=== PATIENT | female | born 1970 | race African-American/Black ===

== ENCOUNTER 2018-03-28 11:58 | Inpatient (IN) | payer OTHER ==
[2018-03-28 13:28] VITALS: BMI 23.6
--- NOTE | 2018-03-28 19:03 | HP ---
Admission ROS [facility] Chief Complaint: WITHDRAWAL SYMPTOMS Allergies/Adverse Reactions: Allergies Allergy/AdvReac Type Severity Reaction Status Date / Time No Known Allergies Allergy Verified 03/28/18 16:17 History of Present Illness: 47 Y.O. WOMAN WITH A HISTORY OF ALCOHOL AND OPIATE DEPENDENCE IS HERE SEEKING HER FIRST ADMISSION TO REHAB. SHE REPORTS SHE WAS ADMITTED TO DETOX AT [facility] ON BUT SHE DID NOT COMPLETE TREATMENT. Exam Limitations: No Limitations - Ebola screening Have you traveled outside of the country in the last 21 days: No Have you had contact with anyone from an Ebola affected area: No Have you been sick,other than usual withdrawal symptoms: No Do you have a fever: No - Review of Systems Constitutional: Loss of Appetite, Changes in sleep EENT: reports: Blurred Vision, Tearing Respiratory: reports: Cough, Shortness of Breath Cardiac: reports: No Symptoms Reported GI: reports: No Symptoms Reported : reports: No Symptoms Reported Musculoskeletal: reports: Back Pain, Neck Pain Integumentary: reports: No Symptoms Reported Neuro: reports: No Symptoms reported Endocrine: reports: No Symptoms Reported Hematology: reports: No Symptoms Reported Psychiatric: reports: Orientated x3 Other Systems: Reviewed and Negative Patient History - Patient Medical History Hx Anemia: No Hx Asthma: Yes (TAKES ALBUTEROL ) Hx Chronic Obstructive Pulmonary Disease (COPD): No Hx Cancer: No Hx Cardiac Disorders: No Hx Congestive Heart Failure: No Hx Hypertension: Yes (ON MEDS ) Hx Hypercholesterolemia: No Hx Pacemaker: No HX Cerebrovascular Accident: No Hx Seizures: No Hx Dementia: No Hx Diabetes: No Hx Gastrointestinal Disorders: No Hx Liver Disease: No Hx Genitourinary Disorders: No Hx Sexually Transmitted Disorders: No Hx Renal Disease (ESRD): No Hx Thyroid Disease: No Hx Human Immunodeficiency Virus (HIV): No Hx Hepatitis C: No Hx Depression: Yes Hx Suicide Attempt: No Hx Bipolar Disorder: No Hx Schizophrenia: No - Patient Surgical History Past Surgical History: No - PPD History Previous Implant?: No PPD to be Administered?: Yes - Reproductive History Patient is a Female of Child Bearing Age (11 -55 yrs old): Yes Last Menstrual Period: 02/25/18 Patient : No - Smoking Cessation Smoking history: Former smoker Have you smoked in the past 12 months: No Initiated information on smoking cessation: No - Substance & Tx. History Hx Alcohol Use: Yes Hx Substance Use: Yes Substance Use Type: Alcohol, Heroin Hx Substance Use Treatment: Yes (DETOX AT [facility] ON 03/23/18) - Substances Abused Heroin Route: Inhalation Frequency: Daily Amount used: 20 BAGS Age of first use: 34 Date of Last Use: 03/28/18 Alcohol Route: Oral Frequency: Daily Amount used: 1 PINT LIQUOR Age of first use: 23 Date of Last Use: 03/26/18 Family Disease History - Family Disease History Family History: Denies Admission Physical Exam [facility] - Vital Signs Vital Signs: Vital Signs - 24 hr 03/28/18 13:17 Temperature 97 F L Pulse Rate 72 Respiratory 20 Rate Blood Pressure 139/110 - Physical General Appearance: Yes: Irritable, Anxious HEENTM: Yes: Hearing grossly Normal, Normal ENT Inspection, Normocephalic Respiratory: Yes: Chest Non-Tender, Lungs Clear, Normal Breath Sounds Neck: Yes: No masses,lesions,Nodules, Trachea in good position Breast: Yes: Breast Exam Deferred Cardiology: Yes: Regular Rhythm, Regular Rate Abdominal: Yes: Normal Bowel Sounds, Non Tender Genitourinary: Yes: Other (NO COMPLAINTS REPORTED) Back: Yes: Normal Inspection Extremities: Yes: Normal Capillary Refill, Normal Inspection, Normal Range of Motion, Non-Tender Neurological: Yes: cytometry technologist II-XII NML intact, Fully Oriented, Alert, Normal Mood/ Affect, Normal Response Integumentary: Yes: Normal Color, Dry, Warm Lymphatic: Yes: Within Normal Limits - Diagnostic (1) Alcohol dependence with uncomplicated withdrawal Current Visit: Yes Status: Chronic (2) Opioid dependence with withdrawal Current Visit: Yes Status: Chronic (3) Asthma Current Visit: Yes Status: Chronic (4) Hypertension Current Visit: Yes Status: Chronic Cleared for Admission [facility] - Detox or Rehab [facility] Level of Care: Observation Bed Detox Regimen/Protocol: Not Applicable Claeared for Rehab Admission: Yes [facility] Breath Alcohol Content Breath Alcohol Content: 0 Urine Drug Screen - Results Drug Screen Negative: No Urine Drug Screen Results: KAYA-Cocaine, OPI-Opiates, BZO-Benzodiazepines, MTD- Methadone Inpatient Rehab Admission - Initial Determination Are CD services needed?: Yes Free of communicable disease: Yes Not in need of hospitalization: Yes - Rehab Admission Criteria Previous failed treatment: Yes Poor recovery environment: Yes Comorbidities: Yes Lacks judgement: Yes Patient is meeting Inpatient Rehab admission criteria:: Yes
[2018-03-28] MEDS ORDERED: LOPERAMIDE HCL 2 MG CAPSULE PO PRN (19:06)
[2018-03-28] MEDS ORDERED: P-EPHED 60MG/TRIPROLIDI 2.5MG TABLET PO PRN (19:06)
[2018-03-28] MEDS ORDERED: MENTHOL/PHENOL 1 EACH UD MM PRN (19:06)
[2018-03-28] MEDS ORDERED: MAGNESIUM CITRATE 300 ML BOTTLE PO PRN (19:06)
[2018-03-28] MEDS ORDERED: MAG HYDROX/AL HYDROX/SIMETH 30 ML UNIT-DOSE CUP PO PRN (19:06)
[2018-03-28] MEDS ORDERED: hydrOXYzine PAMOATE 50 MG CAPSULE (FP) PO PRN (19:06)
[2018-03-28] MEDS ORDERED: MAGNESIUM HYDROX 2400MG/30ML ORAL SUSPENSION 30 ML CUP PO PRN (19:06)
[2018-03-28] MEDS ORDERED: guaiFENesin/D-METHORPHAN HB 10 ML UNIT-DOSE CUPS PO PRN (19:06)
[2018-03-28] MEDS ORDERED: ALBUTEROL SO4 8 GM HFA INHALER IH PRN (19:08)
[2018-03-28] MEDS: THIAMINE HCL 100 MG TABLET (FP) PO SCH (21:54)
[2018-03-28] MEDS: diphenhydrAMINE HCL 25 MG CAPSULE (FP) PO SCH (21:54)
[2018-03-28] MEDS: LISINOPRIL 20 MG TABLET (FP) PO SCH (21:54)
[2018-03-28] MEDS: MELATONIN 5 MG TABLETS PO PRN (21:56)
[2018-03-28] MEDS ORDERED: cloNIDine HCL 0.1 MG TABLET PO SCH (22:00)
[2018-03-28] MEDS: CYCLOBENZAPRINE HCL 5 MG TABLET PO SCH (22:48)
[2018-03-29 02:11] LABS: URINE APPEARANCE SLCLOUDY; URINE BILIRUBIN NEGATIVE (<2.0 mg/dL); URINE COLOR LTYELLOW; URINE GLUCOSE (UA) NEGATIVE (NEGATIVE); URINE KETONE NEGATIVE (NEGATIVE); URINE NITRITE NEGATIVE (NEGATIVE); URINE PROTEIN NEGATIVE (NEGATIVE); URINE UROBILINOGEN NEGATIVE mg/dL (0.2-1.0)
[2018-03-29 02:31] LABS: URINE LEUK ESTERASE 1+ (NEGATIVE)
[2018-03-29 02:36] LABS: EPI CELLS RARE /HPF (FEW); URINE BACTERIA MODERATE /hpf (NONE SEEN)
[2018-03-29] MEDS ORDERED: cloNIDine HCL 0.1 MG TABLET PO SCH ×2 (07:15→22:00)
[2018-03-29] MEDS: CYCLOBENZAPRINE HCL 5 MG TABLET PO SCH ×3 (07:19→22:06)
[2018-03-29] MEDS: PRENATAL VITAMINS W/ FOLIC ACID TABLET (FP) PO SCH (09:34)
[2018-03-29] MEDS: HYDROCHLOROTHIAZIDE 25 MG TABLET (FP) PO SCH (09:34)
[2018-03-29] MEDS: LISINOPRIL 20 MG TABLET (FP) PO SCH ×2 (09:34→22:06)
--- NOTE | 2018-03-29 10:28 | EKG ---
Test Reason : Blood Pressure : / mmHG Vent. Rate : 071 BPM Atrial Rate : 071 BPM P-R Int : 144 ms QRS Dur : 076 ms QT Int : 476 ms P-R-T Axes : 044 014 144 degrees QTc Int : 517 ms NORMAL SINUS RHYTHM T WAVE ABNORMALITY, CONSIDER INFEROLATERAL ISCHEMIA PROLONGED QT ABNORMAL ECG NO PREVIOUS ECGS AVAILABLE Confirmed by SHAHID CARRILLO MD ([id number]) on 03/29/2018 10:28:44 AM Referred By: Confirmed By:SHAHID CARRILLO MD
--- NOTE | 2018-03-29 10:29 | HP ---
Psychiatrist Admission - Data Date of interview: 03/29/18 Admission source: [facility] Identifying data: THis is ther first inpatient rehabilitation for this 47 years old AA single mother of 4 ,undomiciled,supported by SSi. Medical History: Significant for HTN,BA. Psychiatric History: No previous psychiatric history,reports some sleeping difficulties on and off. Physical/Sexual Abuse/Trauma History: denies Vital Signs: Vital Signs - 24 hr 03/28/18 03/28/18 03/29/18 13:17 22:51 00:30 Temperature 97 F L Pulse Rate 72 96 H Respiratory 20 16 Rate Blood Pressure 139/110 150/100 03/29/18 03/29/18 03/29/18 03:30 06:41 07:10 Temperature 97.7 F Pulse Rate 68 68 Respiratory 16 18 Rate Blood Pressure 151/124 160/118 03/29/18 09:21 Temperature Pulse Rate 69 Respiratory Rate Blood Pressure 186/128 Allergies/Adverse Reactions: Allergies Allergy/AdvReac Type Severity Reaction Status Date / Time No Known Allergies Allergy Verified 04/02/18 13:47 Date of last physical exam: 03/28/18 Concur with the findings of this exam: Yes - Substance Abuse/Tx History Hx Alcohol Use: Yes (reports drinking since 23 yo,1 pint of hard liquor daily) Hx Substance Use: Yes (heroin since 34 yo,20 bags daily sniffing) Substance Use Type: Alcohol, Heroin Hx Substance Use Treatment: Yes (no significant abstinent time) Mental Status Exam - Mental Status Exam Alert and Oriented to: Time, Place, Person Cognitive Function: Grossly Intact Patient Appearance: Well Groomed Mood: Sad Affect: Mood Congruent Patient Behavior: Cooperative Voice Loudness: Normal Thought Process: Goal Oriented Thought Disorder: Not Present Hallucinations: Denies Suicidal Ideation: Denies Homicidal Ideation: Denies Insight/Judgement: Fair Sleep: Fair Appetite: Good Muscle strength/Tone: Normal Gait/Station: Normal Psychiatric Findings - Problem List ([place] 1, 2,3) (1) Asthma Current Visit: Yes Status: Chronic (2) Hypertension Current Visit: Yes Status: Chronic Qualifiers: Hypertension type: essential hypertension Qualified Code(s): I10 - Essential (primary) hypertension (3) Opioid dependence with withdrawal Current Visit: Yes Status: Chronic (4) Alcohol dependence Current Visit: Yes Status: Chronic (5) HTN (hypertension) Current Visit: No Status: Chronic Qualifiers: Hypertension type: unspecified Qualified Code(s): I10 - Essential (primary ) hypertension (6) Bronchial asthma Current Visit: Yes Status: Chronic - Initial Treatment Plan Initial Treatment Plan: Will monitor progress.
[2018-03-29 10:58] LABS: HEMATOCRIT 35.7 % (32.4-45.2); HEMOGLOBIN 11.1 GM/dL (10.7-15.3); MCH 24.5 pg (25.7-33.7); MCHC 31.1 g/dl (32.0-36.0); MEAN CELL VOLUME 78.9 fl (80-96); MEAN PLT VOLUME 9.2 fl (7.5-11.1); PLATELET COUNT 211 K/MM3 (134-434); RBC 4.52 M/mm3 (3.60-5.2); RDW 17.6 % (11.6-15.6); WHITE BLOOD COUNT 5.4 K/mm3 (4.0-10.0)
[2018-03-29 11:05] LABS: ALBUMIN 2.9 g/dl (3.4-5.0); ANION GAP 5 MMOL/L (8-16); BLOOD UREA NITROGEN 27 mg/dL (7-18); CALCIUM 9.2 mg/dL (8.5-10.1); CHLORIDE 104 mmol/L (98-107); CO2 34 mmol/L (21-32); GLUCOSE,RANDOM 82 mg/dL (74-106); POTASSIUM 3.7 mmol/L (3.5-5.1); SGOT/AST 68 U/L (15-37); SGPT/ALT 76 U/L (12-78); SODIUM 143 mmol/L (136-145)
[2018-03-29 11:07] LABS: ALK PHOS 56 U/L (45-117); BILIRUBIN,TOTAL 0.2 mg/dL (0.2-1.0); TOT PROT 6.5 g/dl (6.4-8.2)
[2018-03-29] MEDS ORDERED: cloNIDine HCL 0.1 MG TABLET PO ONE ×2 (17:15→23:19)
[2018-03-29] MEDS ORDERED: BUPRENORPHINE/NALOXONE 2 MG/0.5 MG FILM PACKET SL ONE ×2 (20:15→23:20)
[2018-03-29] MEDS: THIAMINE HCL 100 MG TABLET (FP) PO SCH (22:06)
[2018-03-29] MEDS: traZODone HCL 50 MG TABLET (FP) PO SCH (22:06)
[2018-03-29] MEDS: diphenhydrAMINE HCL 25 MG CAPSULE (FP) PO SCH (22:06)
--- NOTE | 2018-03-29 23:30 | PN ---
S Progress Note (SOAP) Subjective: Patient states wants to start on Suboxone and continue post discharge. States does have some opiate withdrawal symptoms. Denies headache, chest pain, SOB. Objective: Alert and oriented. Pupils at 5 mm. 03/29/18 23:28
--- NOTE | 2018-03-29 23:37 | PN ---
BHS COWS - Scale Resting Pulse: 0= VT 80 or Below Sweatin= No chills or Flushing Restless Observation: 1= Difficult to Sit Still Pupil Size: 2= Moderately Dilated (5 mm) Bone or Joint Aches: 1= Mild Discomfort Runny Nose/ Eye Tearin= Runny Nose/Eyes GI Upset > 30mins: 2= Nausea/Diarrhea (No diarrhea) Tremor Observation of Outstretched Hands: 0= None Yawning Observation: 0= None Anxiety or Irritability: 2=Irritable/Anxious Goose Flesh Skin: 0=Smooth Skin COWS Score: 10 BHS Progress Note (SOAP) Subjective: Patient states wants to start on Suboxone and continue post discharge. States does have some opiate withdrawal symptoms. Denies headache, chest pain, SOB. Objective: Alert and oriented. No opiate use for over 24 hours. Blood pressure consistently high despite medications. Vital Signs - 24 hr 03/29/18 03/29/18 03/29/18 00:30 03:30 06:41 Temperature Pulse Rate 68 Respiratory 16 16 Rate Blood Pressure 151/124 03/29/18 03/29/18 03/29/18 07:10 09:21 10:45 Temperature 97.7 F Pulse Rate 68 69 63 Respiratory 18 Rate Blood Pressure 160/118 186/128 161/109 03/29/18 22:00 Temperature Pulse Rate 71 Respiratory Rate Blood Pressure 168/129 CBC, BMP 03/29/18 07:13 03/29/18 07:13 Labs reviewed. Started on Suboxone 2 mg SL earlier and tolerated w/o precipitated withdrawal. Assessment: Opiate use disorder. Uncontrolled hypertension Plan: Give Suboxone 4 mg SL tonight. Suboxone 4 mg SL BID beginning in am. Will adjust cloNIdine doses. If B/P does not decrease after 2330 dose will send to ER.
[2018-03-30] MEDS ORDERED: LISINOPRIL 20 MG TABLET (FP) PO ONE (00:48)
--- NOTE | 2018-03-30 00:59 | PN ---
S Progress Note Note: Patient's B/P: 193/126. Consultation w/ ER physician, Dr. Benjamin, who suggested give a stat dose of Lisinopril 40 mg PO. Will d/c cloNIdine and evalute in am.
[2018-03-30] MEDS: CYCLOBENZAPRINE HCL 5 MG TABLET PO SCH ×3 (06:24→21:25)
[2018-03-30] MEDS: LISINOPRIL 20 MG TABLET (FP) PO SCH ×2 (09:22→21:25)
[2018-03-30] MEDS: PRENATAL VITAMINS W/ FOLIC ACID TABLET (FP) PO SCH (09:22)
[2018-03-30] MEDS: HYDROCHLOROTHIAZIDE 25 MG TABLET (FP) PO SCH (09:22)
[2018-03-30] MEDS: BUPRENORPHINE/NALOXONE 2 MG/0.5 MG FILM PACKET SL SCH ×2 (09:23→21:25)
[2018-03-30] MEDS: diphenhydrAMINE HCL 25 MG CAPSULE (FP) PO SCH (21:25)
[2018-03-30] MEDS: traZODone HCL 50 MG TABLET (FP) PO SCH (21:25)
[2018-03-30] MEDS: THIAMINE HCL 100 MG TABLET (FP) PO SCH (21:25)
[2018-03-31] MEDS: CYCLOBENZAPRINE HCL 5 MG TABLET PO SCH ×3 (06:49→21:35)
[2018-03-31] MEDS ORDERED: amLODIPine BESYLATE 5 MG TABLET (FP) PO ONE (06:54)
--- NOTE | 2018-03-31 07:41 | PN ---
[facility] Progress Note Note: SEEN FOR ONGOING ELEVATED B/P. CLIENT REPORTS HX/O BUT WAS NOT TAKING HOME MEDICATION BYSTOLIC 10MG, CLONIDINE AND LISINOPRIL FOR A LONG TIME SHE WAS OUT OF HER MEDICATION. SHE ALSO REPORTS CHRONIC BACK PAIN 05/08 AND THAT IT ALSO MAY BE A CONTRIBUTING FACTOR TO THE ELEVATED BP. SHE PRESENTLY DENIES SOB, C.P. VISUAL DISTURBANCES, DIZZINESS. AWAKE/ ALERT NAD CV RRR LUNGS CTAB Vital Signs (72 hours) 03/28/18 03/28/18 03/29/18 13:17 22:51 00:30 Temperature 97 F L Pulse Rate 72 96 H Respiratory 20 16 Rate Blood Pressure 139/110 150/100 03/29/18 03/29/18 03/29/18 03:30 06:41 07:10 Temperature 97.7 F Pulse Rate 68 68 Respiratory 16 18 Rate Blood Pressure 151/124 160/118 03/29/18 03/29/18 03/29/18 09:21 10:45 17:15 Temperature Pulse Rate 69 63 70 Respiratory 18 Rate Blood Pressure 186/128 161/109 196/123 03/29/18 03/29/18 03/29/18 22:00 23:00 23:45 Temperature Pulse Rate 71 71 65 Respiratory 18 18 Rate Blood Pressure 168/129 190/128 193/126 03/30/18 03/30/18 03/30/18 00:30 00:54 02:25 Temperature 98.0 F Pulse Rate 60 54 L Respiratory 18 18 18 Rate Blood Pressure 170/118 183/110 03/30/18 03/30/18 03/30/18 03:30 07:03 09:31 Temperature 98 F Pulse Rate 74 67 Respiratory 17 18 Rate Blood Pressure 131/92 127/80 03/30/18 03/30/18 03/31/18 21:00 23:06 00:30 Temperature Pulse Rate 64 54 L Respiratory 17 Rate Blood Pressure 206/141 188/112 03/31/18 03/31/18 03/31/18 00:40 03:30 07:09 Temperature 97.9 F Pulse Rate 51 L 66 Respiratory 18 18 18 Rate Blood Pressure 169/113 154/120 MANUAL REPEAT LEFT ARM SITTING- 138/110 RIGHT ARM 190/110- A-HTN P- AMLODIPINE 5 MG NOW WILL CONSIDER ER TRANSFER IF B/P DOES NOT RESPOND CONT TO MONITOR CLINICALLY VS Q SHIFT
[2018-03-31] MEDS: LISINOPRIL 20 MG TABLET (FP) PO SCH ×2 (09:12→21:35)
[2018-03-31] MEDS: HYDROCHLOROTHIAZIDE 25 MG TABLET (FP) PO SCH (09:12)
[2018-03-31] MEDS: PRENATAL VITAMINS W/ FOLIC ACID TABLET (FP) PO SCH (09:12)
[2018-03-31] MEDS: LIDOCAINE 5% TOPICAL PATCH TP SCH (09:13)
[2018-03-31] MEDS: BUPRENORPHINE/NALOXONE 2 MG/0.5 MG FILM PACKET SL SCH ×2 (09:13→21:35)
--- NOTE | 2018-03-31 17:46 | PN ---
S Progress Note (SOAP) Subjective: c/o tooth ache. Denies headache, vertigo, weakness, chest pain, SOB. has been feeling comfortable since starting Suboxone. attended a group today. Objective: Alert and oriented x 3. Soft, 1.5 cm, tender, pinkish-yellowish mass (R) upper outer gum line at molar area. Many teeth are broken w/ (+) caries. Vital Signs - 24 hr 03/30/18 03/30/18 03/31/18 21:00 23:06 00:30 Temperature Pulse Rate 64 54 L Respiratory 17 Rate Blood Pressure 206/141 188/112 03/31/18 03/31/18 03/31/18 00:40 03:30 07:09 Temperature 97.9 F Pulse Rate 51 L 66 Respiratory 18 18 18 Rate Blood Pressure 169/113 154/120 03/31/18 03/31/18 03/31/18 09:00 10:58 14:00 Temperature 97.8 F Pulse Rate 70 73 68 Respiratory 18 Rate Blood Pressure 140/110 160/110 145/111 03/31/18 15:15 Temperature 98.1 F Pulse Rate 69 Respiratory 18 Rate Blood Pressure 157/111 Assessment: Uncontrolled Hypertension . Tooth/Gum abscess Opiate use disorder Alcoholism in early remission Plan: Start Metoprolol 50 mg PO Daily and continue to monitor B/P Start amoxicillin 500 mg PO TID x 10 days. Continue rehab protocol
[2018-03-31] MEDS: AMOXICILLIN 500 MG CAPSULE (FP) PO SCH (21:35)
[2018-03-31] MEDS: THIAMINE HCL 100 MG TABLET (FP) PO SCH (21:35)
[2018-03-31] MEDS: diphenhydrAMINE HCL 25 MG CAPSULE (FP) PO SCH (21:35)
[2018-03-31] MEDS: LIDOCAINE PATCH REMOVAL MC SCH (21:37)
[2018-03-31] MEDS: traZODone HCL 50 MG TABLET (FP) PO SCH (21:38)
[2018-04-01] MEDS: CYCLOBENZAPRINE HCL 5 MG TABLET PO SCH ×3 (06:26→21:23)
[2018-04-01] MEDS: AMOXICILLIN 500 MG CAPSULE (FP) PO SCH ×3 (06:26→21:26)
--- NOTE | 2018-04-01 07:57 | PN ---
[facility] Progress Note Note: CONSULTED WITH DR. ANTONIO HOSPITALIST AT [facility] [place] HYDRALAZINE [address] ANTONIO AND/SERVICE MAY BE REACHED AT [phone] AND THEN FIRTS 3 LETTERS OF LAST NAME WHEN PROMPTED FOR FURTHER CONSULT IF NEEDED Laboratory Tests 03/29/18 03/29/18 03/29/18 00:45 07:13 07:13 WBC 5.4 RBC 4.52 Hgb 11.1 Hct 35.7 MCV 78.9 L MCH 24.5 L MCHC 31.1 L RDW 17.6 H Plt Count 211 MPV 9.2 Sodium 143 Potassium 3.7 Chloride 104 Carbon Dioxide 34 H Anion Gap 5 L BUN 27 H Creatinine 2.0 H Creat Clearance w eGFR 26.59 Random Glucose 82 Calcium 9.2 Total Bilirubin 0.2 AST 68 H ALT 76 Alkaline Phosphatase 56 Total Protein 6.5 Albumin 2.9 L Urine Color Ltyellow Urine Appearance Slcloudy Urine pH 6.0 Ur Specific [place] 1.004 Urine Protein Negative Urine Glucose (UA) Negative Urine Ketones Negative Urine Blood Negative Urine Nitrite Negative Urine Bilirubin Negative Urine Urobilinogen Negative Ur Leukocyte Esterase 1+ H Urine WBC (Auto) 4 Urine RBC (Auto) 1 Ur Epithelial Cells Rare Urine Bacteria Moderate RPR Titer 03/29/18 07:13 WBC RBC Hgb Hct MCV MCH MCHC RDW Plt Count MPV Sodium Potassium Chloride Carbon Dioxide Anion Gap BUN Creatinine Creat Clearance w eGFR Random Glucose Calcium Total Bilirubin AST ALT Alkaline Phosphatase Total Protein Albumin Urine Color Urine Appearance Urine pH Ur Specific [place] Urine Protein Urine Glucose (UA) Urine Ketones Urine Blood Urine Nitrite Urine Bilirubin Urine Urobilinogen Ur Leukocyte Esterase Urine WBC (Auto) Urine RBC (Auto) Ur Epithelial Cells Urine Bacteria RPR Titer Nonreactive Vital Signs - 24 hr 03/31/18 03/31/18 03/31/18 09:00 10:58 14:00 Temperature 97.8 F Pulse Rate 70 73 68 Respiratory 18 Rate Blood Pressure 140/110 160/110 145/111 03/31/18 03/31/18 03/31/18 15:15 20:45 23:51 Temperature 98.1 F Pulse Rate 69 72 58 L Respiratory 18 Rate Blood Pressure 157/111 170/126 153/98 04/01/18 04/01/18 04/01/18 00:30 03:30 06:45 Temperature 97.8 F Pulse Rate 54 L Respiratory 18 18 16 Rate Blood Pressure 176/127 18 04/01/18 07:06 07:41 Temperature Pulse Rate 58 L 56 L Respiratory 16 16 Rate Blood Pressure 165/110 159/104
[2018-04-01] MEDS: hydrALAZINE HCL 25 MG TABLET (FP) PO SCH ×3 (08:23→21:23)
[2018-04-01] MEDS: HYDROCHLOROTHIAZIDE 25 MG TABLET (FP) PO SCH (09:06)
[2018-04-01] MEDS: LISINOPRIL 20 MG TABLET (FP) PO SCH ×2 (09:09→21:23)
[2018-04-01] MEDS: PRENATAL VITAMINS W/ FOLIC ACID TABLET (FP) PO SCH (09:09)
[2018-04-01] MEDS: BUPRENORPHINE/NALOXONE 2 MG/0.5 MG FILM PACKET SL SCH ×2 (09:09→21:22)
[2018-04-01] MEDS: LIDOCAINE 5% TOPICAL PATCH TP SCH (09:15)
[2018-04-01] MEDS: THIAMINE HCL 100 MG TABLET (FP) PO SCH (21:22)
[2018-04-01] MEDS: traZODone HCL 50 MG TABLET (FP) PO SCH (21:23)
[2018-04-01] MEDS: diphenhydrAMINE HCL 25 MG CAPSULE (FP) PO SCH (21:23)
[2018-04-01] MEDS ORDERED: PT OWN MED DRAWER 7, Y5N ONE (21:24)
[2018-04-01] MEDS: LIDOCAINE PATCH REMOVAL MC SCH (21:26)
[2018-04-02] MEDS ORDERED: PT OWN MED DRAWER 7, Y5N ONE ×3 (03:36→21:22)
[2018-04-02] MEDS: hydrALAZINE HCL 25 MG TABLET (FP) PO SCH ×3 (06:37→21:22)
[2018-04-02] MEDS: AMOXICILLIN 500 MG CAPSULE (FP) PO SCH ×3 (06:37→21:23)
[2018-04-02] MEDS: CYCLOBENZAPRINE HCL 5 MG TABLET PO SCH ×3 (06:37→21:23)
[2018-04-02] MEDS: hydrOXYzine PAMOATE 50 MG CAPSULE (FP) PO PRN ×2 (09:11→20:06)
[2018-04-02] MEDS: PRENATAL VITAMINS W/ FOLIC ACID TABLET (FP) PO SCH (09:14)
[2018-04-02] MEDS: LIDOCAINE 5% TOPICAL PATCH TP SCH (09:14)
[2018-04-02] MEDS: BUPRENORPHINE/NALOXONE 2 MG/0.5 MG FILM PACKET SL SCH ×2 (09:14→21:23)
[2018-04-02] MEDS: LISINOPRIL 20 MG TABLET (FP) PO SCH ×2 (09:15→21:23)
[2018-04-02] MEDS: HYDROCHLOROTHIAZIDE 25 MG TABLET (FP) PO SCH (09:15)
--- NOTE | 2018-04-02 12:35 | PN ---
Teaching Attending Note Name of Resident: Avery Pool (MedStud) ATTENDING PHYSICIAN STATEMENT I saw and evaluated the patient. I reviewed the resident's note and discussed the case with the resident. I agree with the resident's findings and plan as documented. SUBJECTIVE: Patient has long standing uncontrolled HTN, was prescribed meds (Lisinopril, Bystolic, Hydralazine) by a PCP Dr. Edmond (sp?) in [place]. Has not been taking her medications for quite some time. Denies any h/o TX, CP, SOB, or other symptoms of hypertensive urgency. She denies any relationship between cocaine use and her cardiac history. On Suboxone for OUD, 4mg. She denies headache, N/V, SOB, CP, dizziness or change in vision. "Some blurry vision, but I usually wear glasses". OBJECTIVE: AOx3. Conversant. Vital Signs (72 hours) 03/30/18 03/30/18 03/31/18 21:00 23:06 00:30 Temperature Pulse Rate 64 54 L Respiratory 17 Rate Blood Pressure 206/141 188/112 03/31/18 03/31/18 03/31/18 00:40 03:30 07:09 Temperature 97.9 F Pulse Rate 51 L 66 Respiratory 18 18 18 Rate Blood Pressure 169/113 154/120 03/31/18 03/31/18 03/31/18 09:00 10:58 14:00 Temperature 97.8 F Pulse Rate 70 73 68 Respiratory 18 Rate Blood Pressure 140/110 160/110 145/111 03/31/18 03/31/18 03/31/18 15:15 20:45 23:51 Temperature 98.1 F Pulse Rate 69 72 58 L Respiratory 18 Rate Blood Pressure 157/111 170/126 153/98 04/01/18 04/01/18 04/01/18 00:30 03:30 06:45 Temperature 97.8 F Pulse Rate 54 L Respiratory 18 18 16 Rate Blood Pressure 176/127 04/01/18 04/01/18 04/01/18 07:06 07:41 09:20 Temperature Pulse Rate 58 L 56 L 61 Respiratory 16 16 Rate Blood Pressure 165/110 159/104 189/132 04/01/18 04/01/18 04/01/18 13:34 22:20 23:56 Temperature Pulse Rate 68 64 64 Respiratory 18 Rate Blood Pressure 157/104 213/122 178/115 04/01/18 04/02/18 04/02/18 23:57 00:30 03:30 Temperature Pulse Rate Respiratory 18 18 Rate Blood Pressure 178/115 04/02/18 04/02/18 04/02/18 07:00 09:16 11:33 Temperature 97.7 F Pulse Rate 66 76 76 Respiratory 16 18 Rate Blood Pressure 163/123 191/118 153/97 ASSESSMENT AND PLAN: Agree with Medical Student Note. Hypertensive Urgency despite being on medications. Transfer to [facility] ED for full evaluation and treatment if necessary.
[2018-04-02] MEDS ORDERED: cloNIDine HCL 0.1 MG TABLET PO ONE (19:33)
--- NOTE | 2018-04-02 19:35 | PN ---
S Progress Note Note: Notified by RN patient returned from [facility] ER with BP 205/145. Patient not reported as symptomatic. Will give clonidine 0.2mg po stat and endorse return from ER to [facility]. Continue to monitor clinically.
[2018-04-02] MEDS: THIAMINE HCL 100 MG TABLET (FP) PO SCH (21:23)
[2018-04-02] MEDS: LIDOCAINE PATCH REMOVAL MC SCH (21:23)
[2018-04-02] MEDS: diphenhydrAMINE HCL 25 MG CAPSULE (FP) PO SCH (21:23)
[2018-04-02] MEDS: traZODone HCL 50 MG TABLET (FP) PO SCH (21:23)
[2018-04-03] MEDS: hydrALAZINE HCL 25 MG TABLET (FP) PO SCH ×3 (06:31→21:11)
[2018-04-03] MEDS: CYCLOBENZAPRINE HCL 5 MG TABLET PO SCH ×3 (06:31→21:10)
[2018-04-03] MEDS: AMOXICILLIN 500 MG CAPSULE (FP) PO SCH ×3 (06:31→21:10)
[2018-04-03] MEDS: HYDROCHLOROTHIAZIDE 25 MG TABLET (FP) PO SCH (09:05)
[2018-04-03] MEDS: LISINOPRIL 20 MG TABLET (FP) PO SCH ×2 (09:05→21:10)
[2018-04-03] MEDS: PRENATAL VITAMINS W/ FOLIC ACID TABLET (FP) PO SCH (09:06)
[2018-04-03] MEDS: LIDOCAINE 5% TOPICAL PATCH TP SCH (09:06)
[2018-04-03] MEDS: BUPRENORPHINE/NALOXONE 2 MG/0.5 MG FILM PACKET SL SCH ×2 (09:06→21:10)
[2018-04-03] MEDS ORDERED: PT OWN MED DRAWER 7, Y5N ONE (12:08)
[2018-04-03] MEDS ORDERED: BENZOCAINE 20 % GEL TUBE MM PRN (14:30)
--- NOTE | 2018-04-03 14:33 | PN ---
S Progress Note Note: Vital Signs Temperature 97.8 F 04/03/18 06:00 Pulse Rate 73 04/03/18 13:44 Respiratory Rate 18 04/03/18 06:00 Blood Pressure 143/90 04/03/18 13:44 O2 Sat by Pulse Oximetry (%) c/o of dental pain on amoxicillin. start anbesol prn ibuprofen prn for pain continue to monitor
[2018-04-03] MEDS: traZODone HCL 50 MG TABLET (FP) PO SCH (21:10)
[2018-04-03] MEDS: diphenhydrAMINE HCL 25 MG CAPSULE (FP) PO SCH (21:10)
[2018-04-03] MEDS: THIAMINE HCL 100 MG TABLET (FP) PO SCH (21:10)
[2018-04-03] MEDS: LIDOCAINE PATCH REMOVAL MC SCH (21:11)
[2018-04-04] MEDS ORDERED: PT OWN MED DRAWER 7, Y5N ONE ×2 (03:23→13:51)
[2018-04-04] MEDS: CYCLOBENZAPRINE HCL 5 MG TABLET PO SCH ×3 (06:15→21:37)
[2018-04-04] MEDS: hydrALAZINE HCL 25 MG TABLET (FP) PO SCH ×3 (06:15→21:38)
[2018-04-04] MEDS: AMOXICILLIN 500 MG CAPSULE (FP) PO SCH ×3 (06:15→21:37)
--- NOTE | 2018-04-04 07:45 | PN ---
[facility] Progress Note Note: client restarted on clonidine home dose 0.2mg bid metoprolol dose dc'ed due to interaction with clonidine no relief noted on the metoprolol cont to monitor clinically
[2018-04-04] MEDS ORDERED: cloNIDine HCL 0.1 MG TABLET PO ONE (08:10)
[2018-04-04] MEDS: HYDROCHLOROTHIAZIDE 25 MG TABLET (FP) PO SCH (10:23)
[2018-04-04] MEDS: LIDOCAINE 5% TOPICAL PATCH TP SCH (10:23)
[2018-04-04] MEDS: LISINOPRIL 20 MG TABLET (FP) PO SCH ×2 (10:23→21:37)
[2018-04-04] MEDS: BUPRENORPHINE/NALOXONE 2 MG/0.5 MG FILM PACKET SL SCH ×2 (10:23→21:37)
[2018-04-04] MEDS: PRENATAL VITAMINS W/ FOLIC ACID TABLET (FP) PO SCH (10:23)
[2018-04-04] MEDS: hydrOXYzine PAMOATE 50 MG CAPSULE (FP) PO PRN (14:12)
[2018-04-04] MEDS ORDERED: PATIENT'S OWN MEDICATION (NON-FORMULARY) (Clonidine Hcl [Catapres] 0.2 MG) PO SCH (18:00)
[2018-04-04] MEDS: cloNIDine HCL 0.1 MG TABLET PO SCH (18:49)
[2018-04-04] MEDS: traZODone HCL 50 MG TABLET (FP) PO SCH (21:37)
[2018-04-04] MEDS: diphenhydrAMINE HCL 25 MG CAPSULE (FP) PO SCH (21:37)
[2018-04-04] MEDS: THIAMINE HCL 100 MG TABLET (FP) PO SCH (21:38)
[2018-04-04] MEDS: LIDOCAINE PATCH REMOVAL MC SCH (21:39)
[2018-04-05] MEDS ORDERED: PT OWN MED DRAWER 7, Y5N ONE ×2 (06:08→15:40)
[2018-04-05] MEDS: CYCLOBENZAPRINE HCL 5 MG TABLET PO SCH ×3 (06:36→21:20)
[2018-04-05] MEDS: cloNIDine HCL 0.1 MG TABLET PO SCH ×3 (06:36→19:13)
[2018-04-05] MEDS: AMOXICILLIN 500 MG CAPSULE (FP) PO SCH ×3 (06:36→21:20)
[2018-04-05] MEDS: hydrALAZINE HCL 25 MG TABLET (FP) PO SCH (06:37)
[2018-04-05] MEDS: BUPRENORPHINE/NALOXONE 2 MG/0.5 MG FILM PACKET SL SCH ×2 (10:48→21:21)
[2018-04-05] MEDS: LISINOPRIL 20 MG TABLET (FP) PO SCH ×2 (10:48→21:20)
[2018-04-05] MEDS: LIDOCAINE 5% TOPICAL PATCH TP SCH (10:48)
[2018-04-05] MEDS: HYDROCHLOROTHIAZIDE 25 MG TABLET (FP) PO SCH (10:48)
[2018-04-05] MEDS: PRENATAL VITAMINS W/ FOLIC ACID TABLET (FP) PO SCH (10:49)
[2018-04-05] MEDS: hydrALAZINE HCL 50 MG TABLET (FP) PO SCH ×2 (14:26→21:22)
[2018-04-05] MEDS: traZODone HCL 50 MG TABLET (FP) PO SCH (21:20)
[2018-04-05] MEDS: diphenhydrAMINE HCL 25 MG CAPSULE (FP) PO SCH (21:20)
[2018-04-05] MEDS: THIAMINE HCL 100 MG TABLET (FP) PO SCH (21:20)
[2018-04-05] MEDS: MELATONIN 5 MG TABLETS PO PRN (21:21)
[2018-04-05] MEDS: LIDOCAINE PATCH REMOVAL MC SCH (21:22)
[2018-04-06] MEDS: hydrALAZINE HCL 50 MG TABLET (FP) PO SCH ×3 (06:53→21:26)
[2018-04-06] MEDS: CYCLOBENZAPRINE HCL 5 MG TABLET PO SCH ×3 (06:53→21:25)
[2018-04-06] MEDS: cloNIDine HCL 0.1 MG TABLET PO SCH ×2 (06:53→17:54)
[2018-04-06] MEDS: AMOXICILLIN 500 MG CAPSULE (FP) PO SCH ×3 (06:53→21:24)
[2018-04-06] MEDS: LISINOPRIL 20 MG TABLET (FP) PO SCH ×2 (10:34→21:25)
[2018-04-06] MEDS: PRENATAL VITAMINS W/ FOLIC ACID TABLET (FP) PO SCH (10:34)
[2018-04-06] MEDS: LIDOCAINE 5% TOPICAL PATCH TP SCH (10:34)
[2018-04-06] MEDS: HYDROCHLOROTHIAZIDE 25 MG TABLET (FP) PO SCH (10:34)
[2018-04-06] MEDS: BUPRENORPHINE/NALOXONE 2 MG/0.5 MG FILM PACKET SL SCH ×2 (10:36→21:26)
--- NOTE | 2018-04-06 13:03 | PN ---
[facility] Progress Note Note: Laboratory Last Values WBC 5.4 K/mm3 (4.0-10.0) 03/29/18 07:13 RBC 4.52 M/mm3 (3.60-5.2) 03/29/18 07:13 Hgb 11.1 GM/dL (10.7-15.3) 03/29/18 07:13 Hct 35.7 % (32.4-45.2) 03/29/18 07:13 MCV 78.9 fl (80-96) L 03/29/18 07:13 MCH 24.5 pg (25.7-33.7) L 03/29/18 07:13 MCHC 31.1 g/dl (32.0-36.0) L 03/29/18 07:13 RDW 17.6 % (11.6-15.6) H 03/29/18 07:13 Plt Count 211 K/MM3 (134-434) 03/29/18 07:13 MPV 9.2 fl (7.5-11.1) 03/29/18 07:13 Sodium 143 mmol/L (136-145) 03/29/18 07:13 Potassium 3.7 mmol/L (3.5-5.1) 03/29/18 07:13 Chloride 104 mmol/L (98-107) 03/29/18 07:13 Carbon Dioxide 34 mmol/L (21-32) H 03/29/18 07:13 Anion Gap 5 MMOL/L (8-16) L 03/29/18 07:13 BUN 27 mg/dL (7-18) H 03/29/18 07:13 Creatinine 2.0 mg/dL (0.55-1.02) H 03/29/18 07:13 Creat Clearance w eGFR 26.59 (>60) 03/29/18 07:13 Random Glucose 82 mg/dL (74-106) 03/29/18 07:13 Calcium 9.2 mg/dL (8.5-10.1) 03/29/18 07:13 Total Bilirubin 0.2 mg/dL (0.2-1.0) 03/29/18 07:13 AST 68 U/L (15-37) H 03/29/18 07:13 ALT 76 U/L (12-78) 03/29/18 07:13 Alkaline Phosphatase 56 U/L (45-117) 03/29/18 07:13 Total Protein 6.5 g/dl (6.4-8.2) 03/29/18 07:13 Albumin 2.9 g/dl (3.4-5.0) L 03/29/18 07:13 Urine Color Ltyellow 03/29/18 00:45 Urine Appearance Slcloudy 03/29/18 00:45 Urine pH 6.0 (5.0-8.0) 03/29/18 00:45 Ur Specific [place] 1.004 (1.001-1.035) 03/29/18 00:45 Urine Protein Negative (NEGATIVE) 03/29/18 00:45 Urine Glucose (UA) Negative (NEGATIVE) 03/29/18 00:45 Urine Ketones Negative (NEGATIVE) 03/29/18 00:45 Urine Blood Negative (NEGATIVE) 03/29/18 00:45 Urine Nitrite Negative (NEGATIVE) 03/29/18 00:45 Urine Bilirubin Negative (<2.0 mg/dL) 03/29/18 00:45 Urine Urobilinogen Negative mg/dL (0.2-1.0) 03/29/18 00:45 Ur Leukocyte Esterase 1+ (NEGATIVE) H 03/29/18 00:45 Urine WBC (Auto) 4 /hpf (3-5) 03/29/18 00:45 Urine RBC (Auto) 1 /hpf (0-3) 03/29/18 00:45 Ur Epithelial Cells Rare /HPF (FEW) 03/29/18 00:45 Urine Bacteria Moderate /hpf (NONE SEEN) 03/29/18 00:45 RPR Titer Nonreactive (NONREACTIVE) 03/29/18 07:13 repeat cmp continue to monitor
[2018-04-06] MEDS ORDERED: PT OWN MED DRAWER 7, Y5N ONE (13:49)
[2018-04-06] MEDS: hydrOXYzine PAMOATE 50 MG CAPSULE (FP) PO PRN (17:55)
[2018-04-06] MEDS: diphenhydrAMINE HCL 25 MG CAPSULE (FP) PO SCH (21:25)
[2018-04-06] MEDS: traZODone HCL 50 MG TABLET (FP) PO SCH (21:25)
[2018-04-06] MEDS: THIAMINE HCL 100 MG TABLET (FP) PO SCH (21:25)
[2018-04-06] MEDS: LIDOCAINE PATCH REMOVAL MC SCH (21:26)
[2018-04-07] MEDS: cloNIDine HCL 0.1 MG TABLET PO SCH ×2 (06:58→18:45)
[2018-04-07] MEDS: hydrALAZINE HCL 50 MG TABLET (FP) PO SCH ×3 (06:58→21:08)
[2018-04-07] MEDS: AMOXICILLIN 500 MG CAPSULE (FP) PO SCH ×2 (06:58→14:30)
[2018-04-07] MEDS: CYCLOBENZAPRINE HCL 5 MG TABLET PO SCH ×3 (06:58→21:06)
[2018-04-07] MEDS: LIDOCAINE 5% TOPICAL PATCH TP SCH (09:21)
[2018-04-07] MEDS: HYDROCHLOROTHIAZIDE 25 MG TABLET (FP) PO SCH (09:21)
[2018-04-07] MEDS: PRENATAL VITAMINS W/ FOLIC ACID TABLET (FP) PO SCH (09:21)
[2018-04-07] MEDS: LISINOPRIL 20 MG TABLET (FP) PO SCH ×2 (09:21→21:07)
[2018-04-07] MEDS: BUPRENORPHINE/NALOXONE 2 MG/0.5 MG FILM PACKET SL SCH ×2 (09:22→21:08)
[2018-04-07] MEDS: ACETAMINOPHEN 325 MG TABLET (FP) PO PRN (10:56)
[2018-04-07 11:51] LABS: ALBUMIN 3.8 g/dl (3.4-5.0); ALK PHOS 71 U/L (45-117); ANION GAP 7 MMOL/L (8-16); BILIRUBIN,TOTAL 0.3 mg/dL (0.2-1.0); BLOOD UREA NITROGEN 36 mg/dL (7-18); CALCIUM 9.6 mg/dL (8.5-10.1); CHLORIDE 96 mmol/L (98-107); CO2 34 mmol/L (21-32); CREATININE 1.7 mg/dL (0.55-1.02); GLUCOSE,RANDOM 93 mg/dL (74-106); POTASSIUM 3.7 mmol/L (3.5-5.1); SGOT/AST 37 U/L (15-37); SGPT/ALT 44 U/L (12-78); SODIUM 137 mmol/L (136-145); TOT PROT 8.2 g/dl (6.4-8.2)
[2018-04-07] MEDS ORDERED: PT OWN MED DRAWER 7, Y5N ONE (13:25)
[2018-04-07] MEDS: traZODone HCL 50 MG TABLET (FP) PO SCH (21:06)
[2018-04-07] MEDS: diphenhydrAMINE HCL 25 MG CAPSULE (FP) PO SCH (21:06)
[2018-04-07] MEDS: THIAMINE HCL 100 MG TABLET (FP) PO SCH (21:06)
[2018-04-07] MEDS: LIDOCAINE PATCH REMOVAL MC SCH (21:07)
[2018-04-08] MEDS: hydrALAZINE HCL 50 MG TABLET (FP) PO SCH ×3 (06:36→21:46)
[2018-04-08] MEDS: CYCLOBENZAPRINE HCL 5 MG TABLET PO SCH ×3 (06:37→21:44)
[2018-04-08] MEDS: cloNIDine HCL 0.1 MG TABLET PO SCH ×2 (06:37→18:04)
[2018-04-08] MEDS: hydrOXYzine PAMOATE 50 MG CAPSULE (FP) PO PRN ×3 (06:38→18:05)
[2018-04-08] MEDS: LIDOCAINE 5% TOPICAL PATCH TP SCH (10:15)
[2018-04-08] MEDS: PRENATAL VITAMINS W/ FOLIC ACID TABLET (FP) PO SCH (10:15)
[2018-04-08] MEDS: LISINOPRIL 20 MG TABLET (FP) PO SCH ×2 (10:15→21:45)
[2018-04-08] MEDS: BUPRENORPHINE/NALOXONE 2 MG/0.5 MG FILM PACKET SL SCH ×2 (10:16→21:45)
[2018-04-08] MEDS: HYDROCHLOROTHIAZIDE 25 MG TABLET (FP) PO SCH (10:16)
--- NOTE | 2018-04-08 13:35 | PN ---
[facility] Progress Note Note: Vital Signs Temperature 97.8 F 04/08/18 09:34 Pulse Rate 92 H 04/08/18 09:34 Respiratory Rate 18 04/08/18 09:34 Blood Pressure 151/101 04/08/18 09:34 O2 Sat by Pulse Oximetry (%) Laboratory Last Values WBC 5.4 K/mm3 (4.0-10.0) 03/29/18 07:13 RBC 4.52 M/mm3 (3.60-5.2) 03/29/18 07:13 Hgb 11.1 GM/dL (10.7-15.3) 03/29/18 07:13 Hct 35.7 % (32.4-45.2) 03/29/18 07:13 MCV 78.9 fl (80-96) L 03/29/18 07:13 MCH 24.5 pg (25.7-33.7) L 03/29/18 07:13 MCHC 31.1 g/dl (32.0-36.0) L 03/29/18 07:13 RDW 17.6 % (11.6-15.6) H 03/29/18 07:13 Plt Count 211 K/MM3 (134-434) 03/29/18 07:13 MPV 9.2 fl (7.5-11.1) 03/29/18 07:13 Sodium 137 mmol/L (136-145) 04/07/18 09:30 Potassium 3.7 mmol/L (3.5-5.1) 04/07/18 09:30 Chloride 96 mmol/L (98-107) L 04/07/18 09:30 Carbon Dioxide 34 mmol/L (21-32) H 04/07/18 09:30 Anion Gap 7 MMOL/L (8-16) L 04/07/18 09:30 BUN 36 mg/dL (7-18) H 04/07/18 09:30 Creatinine 1.7 mg/dL (0.55-1.02) H 04/07/18 09:30 Creat Clearance w eGFR 32.08 (>60) 04/07/18 09:30 Random Glucose 93 mg/dL (74-106) 04/07/18 09:30 Calcium 9.6 mg/dL (8.5-10.1) 04/07/18 09:30 Total Bilirubin 0.3 mg/dL (0.2-1.0) 04/07/18 09:30 AST 37 U/L (15-37) 04/07/18 09:30 ALT 44 U/L (12-78) 04/07/18 09:30 Alkaline Phosphatase 71 U/L (45-117) D 04/07/18 09:30 Total Protein 8.2 g/dl (6.4-8.2) 04/07/18 09:30 Albumin 3.8 g/dl (3.4-5.0) 04/07/18 09:30 Urine Color Ltyellow 03/29/18 00:45 Urine Appearance Slcloudy 03/29/18 00:45 Urine pH 6.0 (5.0-8.0) 03/29/18 00:45 Ur Specific [place] 1.004 (1.001-1.035) 03/29/18 00:45 Urine Protein Negative (NEGATIVE) 03/29/18 00:45 Urine Glucose (UA) Negative (NEGATIVE) 03/29/18 00:45 Urine Ketones Negative (NEGATIVE) 03/29/18 00:45 Urine Blood Negative (NEGATIVE) 03/29/18 00:45 Urine Nitrite Negative (NEGATIVE) 03/29/18 00:45 Urine Bilirubin Negative (<2.0 mg/dL) 03/29/18 00:45 Urine Urobilinogen Negative mg/dL (0.2-1.0) 03/29/18 00:45 Ur Leukocyte Esterase 1+ (NEGATIVE) H 03/29/18 00:45 Urine WBC (Auto) 4 /hpf (3-5) 03/29/18 00:45 Urine RBC (Auto) 1 /hpf (0-3) 03/29/18 00:45 Ur Epithelial Cells Rare /HPF (FEW) 03/29/18 00:45 Urine Bacteria Moderate /hpf (NONE SEEN) 03/29/18 00:45 RPR Titer Nonreactive (NONREACTIVE) 03/29/18 07:13 Labs reviewed d/c Mag containing products patient currently on lisinopril 20 BI, hydrosezine 50 mg TI, HCTZ 25 mg qd and clonidine 0.2 mg BID for HTN. Increase HCTZ to 50mg QD. Increase fluids, low sodium diet. Continue to monitor.
[2018-04-08] MEDS ORDERED: PT OWN MED DRAWER 7, Y5N ONE (13:49)
[2018-04-08] MEDS ORDERED: HYDROCHLOROTHIAZIDE 25 MG TABLET (FP) PO ONE (14:14)
--- NOTE | 2018-04-08 15:03 | PN ---
[facility] Progress Note Note: Vital Signs Temperature 97.8 F 04/08/18 09:34 Pulse Rate 80 04/08/18 14:05 Respiratory Rate 18 04/08/18 09:34 Blood Pressure 174/114 04/08/18 14:05 O2 Sat by Pulse Oximetry (%) Patient pending schedule dose of hydralizine 50 mg , will give additional dose HCTZ 25 mg with it. increase fluids repeat v/s continue to monitor
[2018-04-08] MEDS: THIAMINE HCL 100 MG TABLET (FP) PO SCH (21:44)
[2018-04-08] MEDS: diphenhydrAMINE HCL 25 MG CAPSULE (FP) PO SCH (21:45)
[2018-04-08] MEDS: traZODone HCL 50 MG TABLET (FP) PO SCH (21:45)
[2018-04-08] MEDS: LIDOCAINE PATCH REMOVAL MC SCH (21:45)
[2018-04-09] MEDS: CYCLOBENZAPRINE HCL 5 MG TABLET PO SCH ×3 (06:47→21:11)
[2018-04-09] MEDS: cloNIDine HCL 0.1 MG TABLET PO SCH ×2 (06:47→17:46)
[2018-04-09] MEDS: hydrALAZINE HCL 50 MG TABLET (FP) PO SCH ×3 (06:47→21:11)
[2018-04-09] MEDS: hydrOXYzine PAMOATE 50 MG CAPSULE (FP) PO PRN ×3 (06:47→21:11)
[2018-04-09] MEDS: HYDROCHLOROTHIAZIDE 25 MG TABLET (FP) PO SCH (10:59)
[2018-04-09] MEDS: PRENATAL VITAMINS W/ FOLIC ACID TABLET (FP) PO SCH (11:00)
[2018-04-09] MEDS: BUPRENORPHINE/NALOXONE 2 MG/0.5 MG FILM PACKET SL SCH ×2 (11:00→21:11)
[2018-04-09] MEDS: LIDOCAINE 5% TOPICAL PATCH TP SCH (11:00)
[2018-04-09] MEDS: LISINOPRIL 20 MG TABLET (FP) PO SCH ×2 (11:00→21:11)
[2018-04-09] MEDS: IBUPROFEN 400 MG TABLET (FP) PO PRN (11:03)
[2018-04-09] MEDS ORDERED: PT OWN MED DRAWER 7, Y5N ONE (14:01)
--- NOTE | 2018-04-09 20:07 | PN ---
[facility] Progress Note Note: Vital Signs Temperature 98.0 F 04/09/18 16:40 Pulse Rate 75 04/09/18 16:40 Respiratory Rate 18 04/09/18 16:40 Blood Pressure 205/135 04/09/18 16:40 O2 Sat by Pulse Oximetry (%) Patient Aox3, denies CP, SOB, vertigo c/o tooth ache, reports pending oral sx + irritable + poor dentition, gum erythema No JVD No adventitious breath sounds no peripheral edema, skin intact repeat BP after receiving clonidine 0.2 mg = 145/102 - HTN - Dentalgia Plan: vistaril PRN amox x 5 days anbesol PRN increase PO fluids monitor BP Patient educated on dental hygiene, low sodium diet, follow up with dentist upon discharge continue to monitor
[2018-04-09] MEDS: diphenhydrAMINE HCL 25 MG CAPSULE (FP) PO SCH (21:11)
[2018-04-09] MEDS: traZODone HCL 50 MG TABLET (FP) PO SCH (21:11)
[2018-04-09] MEDS: THIAMINE HCL 100 MG TABLET (FP) PO SCH (21:12)
[2018-04-09] MEDS: LIDOCAINE PATCH REMOVAL MC SCH (21:13)
[2018-04-09] MEDS: AMOXICILLIN 500 MG CAPSULE (FP) PO SCH (21:14)
[2018-04-10] MEDS: hydrOXYzine PAMOATE 50 MG CAPSULE (FP) PO PRN ×2 (06:46→17:13)
[2018-04-10] MEDS: cloNIDine HCL 0.1 MG TABLET PO SCH ×2 (06:46→17:12)
[2018-04-10] MEDS: hydrALAZINE HCL 50 MG TABLET (FP) PO SCH ×3 (06:46→21:33)
[2018-04-10] MEDS: CYCLOBENZAPRINE HCL 5 MG TABLET PO SCH ×3 (06:47→21:33)
[2018-04-10] MEDS: AMOXICILLIN 500 MG CAPSULE (FP) PO SCH ×2 (09:14→21:33)
[2018-04-10] MEDS: HYDROCHLOROTHIAZIDE 25 MG TABLET (FP) PO SCH (09:15)
[2018-04-10] MEDS: PRENATAL VITAMINS W/ FOLIC ACID TABLET (FP) PO SCH (09:15)
[2018-04-10] MEDS: LISINOPRIL 20 MG TABLET (FP) PO SCH ×2 (09:15→21:32)
[2018-04-10] MEDS: LIDOCAINE 5% TOPICAL PATCH TP SCH (09:15)
[2018-04-10] MEDS: BUPRENORPHINE/NALOXONE 2 MG/0.5 MG FILM PACKET SL SCH ×2 (09:16→21:35)
[2018-04-10] MEDS ORDERED: diphenhydrAMINE HCL 25 MG CAPSULE (FP) PO ONE (12:48)
[2018-04-10] MEDS ORDERED: cloNIDine HCL 0.1 MG TABLET PO ONE (12:49)
--- NOTE | 2018-04-10 12:50 | PN ---
[facility] Progress Note Note: Vital Signs Temperature 97.8 F 04/10/18 08:30 Pulse Rate 79 04/10/18 08:30 Respiratory Rate 18 04/10/18 08:30 Blood Pressure 156/104 04/10/18 08:30 O2 Sat by Pulse Oximetry (%) c/o of itchy eeys runny nose one time dose bendaryl clonidine 0.1 mg reapeat v/s
[2018-04-10] MEDS: SODIUM CHLORIDE NASAL SPRAY 44 ML BOTTLE NS SCH ×2 (15:05→21:34)
[2018-04-10] MEDS: ACETAMINOPHEN 325 MG TABLET (FP) PO PRN (17:12)
[2018-04-10] MEDS: THIAMINE HCL 100 MG TABLET (FP) PO SCH (21:32)
[2018-04-10] MEDS: diphenhydrAMINE HCL 25 MG CAPSULE (FP) PO SCH (21:33)
[2018-04-10] MEDS: traZODone HCL 50 MG TABLET (FP) PO SCH (21:33)
[2018-04-10] MEDS: LIDOCAINE PATCH REMOVAL MC SCH (21:34)
[2018-04-10] MEDS: MONTELUKAST NA 10 MG TABLET PO SCH (21:35)
[2018-04-11] MEDS: SODIUM CHLORIDE NASAL SPRAY 44 ML BOTTLE NS SCH ×3 (06:40→21:50)
[2018-04-11] MEDS: cloNIDine HCL 0.1 MG TABLET PO SCH ×2 (06:40→17:35)
[2018-04-11] MEDS: hydrALAZINE HCL 50 MG TABLET (FP) PO SCH ×4 (06:40→23:35)
[2018-04-11] MEDS: CYCLOBENZAPRINE HCL 5 MG TABLET PO SCH ×3 (06:41→21:48)
[2018-04-11] MEDS: hydrOXYzine PAMOATE 50 MG CAPSULE (FP) PO PRN ×3 (06:41→17:38)
[2018-04-11] MEDS: AMOXICILLIN 500 MG CAPSULE (FP) PO SCH ×2 (09:08→21:51)
[2018-04-11] MEDS: HYDROCHLOROTHIAZIDE 25 MG TABLET (FP) PO SCH (09:08)
[2018-04-11] MEDS: LISINOPRIL 20 MG TABLET (FP) PO SCH ×2 (09:09→21:48)
[2018-04-11] MEDS: PRENATAL VITAMINS W/ FOLIC ACID TABLET (FP) PO SCH (09:09)
[2018-04-11] MEDS: LIDOCAINE 5% TOPICAL PATCH TP SCH (09:09)
[2018-04-11] MEDS: BUPRENORPHINE/NALOXONE 2 MG/0.5 MG FILM PACKET SL SCH ×2 (09:09→23:35)
[2018-04-11] MEDS: ACETAMINOPHEN 325 MG TABLET (FP) PO PRN (10:26)
[2018-04-11] MEDS ORDERED: PT OWN MED DRAWER 7, Y5N ONE (12:08)
--- NOTE | 2018-04-11 14:14 | PN ---
[facility] Progress Note Note: Vital Signs Temperature 97.7 F 04/11/18 08:35 Pulse Rate 88 04/11/18 13:43 Respiratory Rate 18 04/11/18 08:35 Blood Pressure 168/114 04/11/18 13:43 O2 Sat by Pulse Oximetry (%) Patient continues with elevated diastolic BP. Received apresoline 50 mg. Patient continues with high BP currently on lisinopril 20 BID, apresoline 50 mg TID, HCTZ 50 mg qd and clonidine 0.2 mg BID. Will increase apresoline to 50 mg q6h. Increase PO fluids low sodium diet continue to monitor If BP continues elevated patient will be sent to [facility] for further evaluation.
[2018-04-11] MEDS: PANTOPRAZOLE 20 MG TABLET (FP) PO SCH (20:45)
[2018-04-11] MEDS: diphenhydrAMINE HCL 25 MG CAPSULE (FP) PO SCH (21:48)
[2018-04-11] MEDS: MONTELUKAST NA 10 MG TABLET PO SCH (21:48)
[2018-04-11] MEDS: traZODone HCL 50 MG TABLET (FP) PO SCH (21:48)
[2018-04-11] MEDS: THIAMINE HCL 100 MG TABLET (FP) PO SCH (21:48)
[2018-04-11] MEDS: LIDOCAINE PATCH REMOVAL MC SCH (21:50)
[2018-04-12] MEDS: cloNIDine HCL 0.1 MG TABLET PO SCH ×2 (06:05→18:46)
[2018-04-12] MEDS: CYCLOBENZAPRINE HCL 5 MG TABLET PO SCH ×3 (06:05→21:12)
[2018-04-12] MEDS: hydrALAZINE HCL 50 MG TABLET (FP) PO SCH ×4 (06:05→23:57)
[2018-04-12] MEDS ORDERED: PT OWN MED DRAWER 7, Y5N ONE ×4 (06:06→21:15)
[2018-04-12] MEDS: SODIUM CHLORIDE NASAL SPRAY 44 ML BOTTLE NS SCH ×3 (06:06→21:14)
[2018-04-12] MEDS: hydrOXYzine PAMOATE 50 MG CAPSULE (FP) PO PRN ×2 (06:07→18:47)
[2018-04-12] MEDS ORDERED: BUPRENORPHINE/NALOXONE 2 MG/0.5 MG FILM PACKET SL SCH (10:00)
[2018-04-12] MEDS: LIDOCAINE 5% TOPICAL PATCH TP SCH (10:03)
[2018-04-12] MEDS: BUPRENORPHINE/NALOXONE 2 MG/0.5 MG FILM PACKET SL SCH ×2 (10:03→21:13)
[2018-04-12] MEDS: HYDROCHLOROTHIAZIDE 25 MG TABLET (FP) PO SCH (10:04)
[2018-04-12] MEDS: LISINOPRIL 20 MG TABLET (FP) PO SCH ×2 (10:04→21:12)
[2018-04-12] MEDS: PANTOPRAZOLE 20 MG TABLET (FP) PO SCH (10:04)
[2018-04-12] MEDS: AMOXICILLIN 500 MG CAPSULE (FP) PO SCH ×2 (10:04→21:12)
[2018-04-12] MEDS: PRENATAL VITAMINS W/ FOLIC ACID TABLET (FP) PO SCH (10:04)
[2018-04-12] MEDS ORDERED: amLODIPine BESYLATE 5 MG TABLET (FP) PO ONE (11:03)
[2018-04-12] MEDS ORDERED: COLLOIDAL OATMEAL 1 BAR EACH TP PRN (13:05)
[2018-04-12] MEDS: diphenhydrAMINE HCL 25 MG CAPSULE (FP) PO SCH (21:12)
[2018-04-12] MEDS: THIAMINE HCL 100 MG TABLET (FP) PO SCH (21:12)
[2018-04-12] MEDS: traZODone HCL 50 MG TABLET (FP) PO SCH (21:12)
[2018-04-12] MEDS: MONTELUKAST NA 10 MG TABLET PO SCH (21:12)
[2018-04-12] MEDS: LIDOCAINE PATCH REMOVAL MC SCH (21:14)
[2018-04-13] MEDS ORDERED: cloNIDine HCL 0.1 MG TABLET PO ONE ×2 (01:50→11:20)
--- NOTE | 2018-04-13 01:52 | PN ---
[facility] Progress Note Note: Patients blood pressure is B/P 157/102. Patient is asymptomatic Vital Signs Temperature 98.5 F 04/12/18 16:30 Pulse Rate 71 04/12/18 23:56 Respiratory Rate 17 04/13/18 00:30 Blood Pressure 157/102 04/12/18 23:56 O2 Sat by Pulse Oximetry (%) ACTION: Clonidine 0.1mg tablet oral ordered
[2018-04-13] MEDS: CYCLOBENZAPRINE HCL 5 MG TABLET PO SCH ×3 (06:28→21:39)
[2018-04-13] MEDS: hydrALAZINE HCL 50 MG TABLET (FP) PO SCH ×3 (06:28→17:09)
[2018-04-13] MEDS: cloNIDine HCL 0.1 MG TABLET PO SCH ×2 (06:28→17:09)
[2018-04-13] MEDS: SODIUM CHLORIDE NASAL SPRAY 44 ML BOTTLE NS SCH ×3 (06:29→21:42)
[2018-04-13] MEDS: hydrOXYzine PAMOATE 50 MG CAPSULE (FP) PO PRN ×2 (06:30→17:10)
[2018-04-13] MEDS: HYDROCHLOROTHIAZIDE 25 MG TABLET (FP) PO SCH ×2 (08:46→10:36)
[2018-04-13] MEDS: amLODIPine BESYLATE 5 MG TABLET (FP) PO SCH ×2 (08:46→10:36)
[2018-04-13] MEDS: LISINOPRIL 20 MG TABLET (FP) PO SCH ×3 (08:46→21:39)
[2018-04-13] MEDS: PRENATAL VITAMINS W/ FOLIC ACID TABLET (FP) PO SCH (10:11)
[2018-04-13] MEDS: LIDOCAINE 5% TOPICAL PATCH TP SCH (10:11)
[2018-04-13] MEDS: BUPRENORPHINE/NALOXONE 2 MG/0.5 MG FILM PACKET SL SCH ×2 (10:11→21:40)
[2018-04-13] MEDS: PANTOPRAZOLE 20 MG TABLET (FP) PO SCH (10:11)
[2018-04-13] MEDS: ACETAMINOPHEN 325 MG TABLET (FP) PO PRN (10:16)
[2018-04-13] MEDS ORDERED: PT OWN MED DRAWER 7, Y5N ONE (11:12)
[2018-04-13] MEDS: MONTELUKAST NA 10 MG TABLET PO SCH (21:39)
[2018-04-13] MEDS: diphenhydrAMINE HCL 25 MG CAPSULE (FP) PO SCH (21:39)
[2018-04-13] MEDS: traZODone HCL 50 MG TABLET (FP) PO SCH (21:39)
[2018-04-13] MEDS: THIAMINE HCL 100 MG TABLET (FP) PO SCH (21:39)
[2018-04-13] MEDS: LIDOCAINE PATCH REMOVAL MC SCH (21:41)
[2018-04-14] MEDS: hydrALAZINE HCL 50 MG TABLET (FP) PO SCH ×4 (00:34→17:09)
[2018-04-14] MEDS: CYCLOBENZAPRINE HCL 5 MG TABLET PO SCH ×3 (06:56→21:08)
[2018-04-14] MEDS: cloNIDine HCL 0.1 MG TABLET PO SCH ×2 (06:56→17:09)
[2018-04-14] MEDS: hydrOXYzine PAMOATE 50 MG CAPSULE (FP) PO PRN ×2 (06:57→17:10)
[2018-04-14] MEDS: SODIUM CHLORIDE NASAL SPRAY 44 ML BOTTLE NS SCH ×3 (06:58→21:11)
[2018-04-14] MEDS: LIDOCAINE 5% TOPICAL PATCH TP SCH (09:48)
[2018-04-14] MEDS: PANTOPRAZOLE 20 MG TABLET (FP) PO SCH (09:48)
[2018-04-14] MEDS: LISINOPRIL 20 MG TABLET (FP) PO SCH ×2 (09:48→21:08)
[2018-04-14] MEDS: amLODIPine BESYLATE 5 MG TABLET (FP) PO SCH (09:49)
[2018-04-14] MEDS: HYDROCHLOROTHIAZIDE 25 MG TABLET (FP) PO SCH (09:49)
[2018-04-14] MEDS: PRENATAL VITAMINS W/ FOLIC ACID TABLET (FP) PO SCH (09:49)
[2018-04-14] MEDS: BUPRENORPHINE/NALOXONE 2 MG/0.5 MG FILM PACKET SL SCH ×2 (09:50→21:08)
[2018-04-14] MEDS ORDERED: PT OWN MED DRAWER 7, Y5N ONE (19:21)
[2018-04-14] MEDS: THIAMINE HCL 100 MG TABLET (FP) PO SCH (21:08)
[2018-04-14] MEDS: traZODone HCL 50 MG TABLET (FP) PO SCH (21:08)
[2018-04-14] MEDS: diphenhydrAMINE HCL 25 MG CAPSULE (FP) PO SCH (21:09)
[2018-04-14] MEDS: MONTELUKAST NA 10 MG TABLET PO SCH (21:09)
[2018-04-14] MEDS: LIDOCAINE PATCH REMOVAL MC SCH (22:35)
[2018-04-15] MEDS: hydrALAZINE HCL 50 MG TABLET (FP) PO SCH ×4 (00:36→17:15)
[2018-04-15] MEDS ORDERED: PT OWN MED DRAWER 7, Y5N ONE ×2 (05:27→20:53)
[2018-04-15] MEDS: IBUPROFEN 400 MG TABLET (FP) PO PRN (06:12)
[2018-04-15] MEDS: SODIUM CHLORIDE NASAL SPRAY 44 ML BOTTLE NS SCH ×3 (06:13→21:02)
[2018-04-15] MEDS: CYCLOBENZAPRINE HCL 5 MG TABLET PO SCH ×3 (06:13→21:03)
[2018-04-15] MEDS: cloNIDine HCL 0.1 MG TABLET PO SCH ×2 (06:13→17:15)
[2018-04-15] MEDS: LIDOCAINE 5% TOPICAL PATCH TP SCH (10:38)
[2018-04-15] MEDS: HYDROCHLOROTHIAZIDE 25 MG TABLET (FP) PO SCH (10:38)
[2018-04-15] MEDS: PANTOPRAZOLE 20 MG TABLET (FP) PO SCH (10:39)
[2018-04-15] MEDS: PRENATAL VITAMINS W/ FOLIC ACID TABLET (FP) PO SCH (10:39)
[2018-04-15] MEDS: amLODIPine BESYLATE 5 MG TABLET (FP) PO SCH (10:39)
[2018-04-15] MEDS: LISINOPRIL 20 MG TABLET (FP) PO SCH ×2 (10:39→21:03)
[2018-04-15] MEDS: BUPRENORPHINE/NALOXONE 2 MG/0.5 MG FILM PACKET SL SCH ×2 (10:40→21:04)
[2018-04-15] MEDS: hydrOXYzine PAMOATE 50 MG CAPSULE (FP) PO PRN ×2 (13:44→17:15)
--- NOTE | 2018-04-15 13:52 | PN ---
[facility] Progress Note Note: Vital Signs - 24 hr 04/14/18 04/15/18 04/15/18 20:40 00:15 00:30 Temperature 97.3 F L Pulse Rate 102 H 78 Respiratory 18 18 Rate Blood Pressure 134/93 116/70 04/15/18 04/15/18 04/15/18 03:30 06:55 09:30 Temperature 97.8 F 100.1 F H Pulse Rate 74 97 H Respiratory 18 18 18 Rate Blood Pressure 156/118 123/82 Laboratory Last Values WBC 5.4 K/mm3 (4.0-10.0) 03/29/18 07:13 RBC 4.52 M/mm3 (3.60-5.2) 03/29/18 07:13 Hgb 11.1 GM/dL (10.7-15.3) 03/29/18 07:13 Hct 35.7 % (32.4-45.2) 03/29/18 07:13 MCV 78.9 fl (80-96) L 03/29/18 07:13 MCH 24.5 pg (25.7-33.7) L 03/29/18 07:13 MCHC 31.1 g/dl (32.0-36.0) L 03/29/18 07:13 RDW 17.6 % (11.6-15.6) H 03/29/18 07:13 Plt Count 211 K/MM3 (134-434) 03/29/18 07:13 MPV 9.2 fl (7.5-11.1) 03/29/18 07:13 Sodium 137 mmol/L (136-145) 04/07/18 09:30 Potassium 3.7 mmol/L (3.5-5.1) 04/07/18 09:30 Chloride 96 mmol/L (98-107) L 04/07/18 09:30 Carbon Dioxide 34 mmol/L (21-32) H 04/07/18 09:30 Anion Gap 7 MMOL/L (8-16) L 04/07/18 09:30 BUN 36 mg/dL (7-18) H 04/07/18 09:30 Creatinine 1.7 mg/dL (0.55-1.02) H 04/07/18 09:30 Creat Clearance w eGFR 32.08 (>60) 04/07/18 09:30 Random Glucose 93 mg/dL (74-106) 04/07/18 09:30 Calcium 9.6 mg/dL (8.5-10.1) 04/07/18 09:30 Total Bilirubin 0.3 mg/dL (0.2-1.0) 04/07/18 09:30 AST 37 U/L (15-37) 04/07/18 09:30 ALT 44 U/L (12-78) 04/07/18 09:30 Alkaline Phosphatase 71 U/L (45-117) D 04/07/18 09:30 Total Protein 8.2 g/dl (6.4-8.2) 04/07/18 09:30 Albumin 3.8 g/dl (3.4-5.0) 04/07/18 09:30 Urine Color Ltyellow 03/29/18 00:45 Urine Appearance Slcloudy 03/29/18 00:45 Urine pH 6.0 (5.0-8.0) 03/29/18 00:45 Ur Specific [place] 1.004 (1.001-1.035) 03/29/18 00:45 Urine Protein Negative (NEGATIVE) 03/29/18 00:45 Urine Glucose (UA) Negative (NEGATIVE) 03/29/18 00:45 Urine Ketones Negative (NEGATIVE) 03/29/18 00:45 Urine Blood Negative (NEGATIVE) 03/29/18 00:45 Urine Nitrite Negative (NEGATIVE) 03/29/18 00:45 Urine Bilirubin Negative (<2.0 mg/dL) 03/29/18 00:45 Urine Urobilinogen Negative mg/dL (0.2-1.0) 03/29/18 00:45 Ur Leukocyte Esterase 1+ (NEGATIVE) H 03/29/18 00:45 Urine WBC (Auto) 4 /hpf (3-5) 03/29/18 00:45 Urine RBC (Auto) 1 /hpf (0-3) 03/29/18 00:45 Ur Epithelial Cells Rare /HPF (FEW) 03/29/18 00:45 Urine Bacteria Moderate /hpf (NONE SEEN) 03/29/18 00:45 RPR Titer Nonreactive (NONREACTIVE) 03/29/18 07:13 improve in BP w CMP ordered continue to monitor
[2018-04-15] MEDS: MONTELUKAST NA 10 MG TABLET PO SCH (21:03)
[2018-04-15] MEDS: LIDOCAINE PATCH REMOVAL MC SCH (21:03)
[2018-04-15] MEDS: traZODone HCL 50 MG TABLET (FP) PO SCH (21:03)
[2018-04-15] MEDS: diphenhydrAMINE HCL 25 MG CAPSULE (FP) PO SCH (21:03)
[2018-04-15] MEDS: THIAMINE HCL 100 MG TABLET (FP) PO SCH (21:03)
[2018-04-16] MEDS ORDERED: PT OWN MED DRAWER 7, Y5N ONE ×5 (00:23→22:35)
[2018-04-16] MEDS: hydrOXYzine PAMOATE 50 MG CAPSULE (FP) PO PRN ×4 (00:31→19:05)
[2018-04-16] MEDS: hydrALAZINE HCL 50 MG TABLET (FP) PO SCH ×5 (00:31→23:34)
[2018-04-16] MEDS: cloNIDine HCL 0.1 MG TABLET PO SCH ×2 (06:11→18:05)
[2018-04-16] MEDS: CYCLOBENZAPRINE HCL 5 MG TABLET PO SCH ×3 (06:11→21:08)
[2018-04-16] MEDS: SODIUM CHLORIDE NASAL SPRAY 44 ML BOTTLE NS SCH ×3 (06:14→21:09)
[2018-04-16] MEDS: HYDROCHLOROTHIAZIDE 25 MG TABLET (FP) PO SCH (09:17)
[2018-04-16] MEDS: LIDOCAINE 5% TOPICAL PATCH TP SCH (09:18)
[2018-04-16] MEDS: PRENATAL VITAMINS W/ FOLIC ACID TABLET (FP) PO SCH (09:18)
[2018-04-16] MEDS: LISINOPRIL 20 MG TABLET (FP) PO SCH ×2 (09:18→21:08)
[2018-04-16] MEDS: amLODIPine BESYLATE 5 MG TABLET (FP) PO SCH (09:18)
[2018-04-16] MEDS: PANTOPRAZOLE 20 MG TABLET (FP) PO SCH (09:19)
[2018-04-16] MEDS: BUPRENORPHINE/NALOXONE 2 MG/0.5 MG FILM PACKET SL SCH ×2 (09:19→22:29)
--- NOTE | 2018-04-16 15:01 | PN ---
[facility] Progress Note Note: PATIENT SEEN FOR REFUSAL OF LABS. STATES SHE DID NOT KNOW WHY SHE WAS ORDERED LABS SO SHE REFUSED. ALSO C/O INSOMNIA, OPIOD CRAVINGS AND IRRITABILITY. Vital Signs Temperature 97.8 F 04/16/18 06:49 Pulse Rate 94 H 04/16/18 12:03 Respiratory Rate 18 04/16/18 12:03 Blood Pressure 154/97 04/16/18 12:03 O2 Sat by Pulse Oximetry (%) Vital Signs Temperature 97.8 F 04/16/18 06:49 Pulse Rate 94 H 04/16/18 12:03 Respiratory Rate 04/16/18 12:03 Blood Pressure 154/97 04/16/18 12:03 O2 Sat by Pulse Oximetry (%) Laboratory Tests 03/29/18 03/29/18 03/29/18 00:45 07:13 07:13 WBC 5.4 RBC 4.52 Hgb 11.1 Hct 35.7 MCV 78.9 L MCH 24.5 L MCHC 31.1 L RDW 17.6 H Plt Count 211 MPV 9.2 Sodium 143 Potassium 3.7 Chloride 104 Carbon Dioxide 34 H Anion Gap 5 L BUN 27 H Creatinine 2.0 H Creat Clearance w eGFR 26.59 Random Glucose 82 Calcium 9.2 Total Bilirubin 0.2 AST 68 H ALT 76 Alkaline Phosphatase 56 Total Protein 6.5 Albumin 2.9 L Urine Color Ltyellow Urine Appearance Slcloudy Urine pH 6.0 Ur Specific [place] 1.004 Urine Protein Negative Urine Glucose (UA) Negative Urine Ketones Negative Urine Blood Negative Urine Nitrite Negative Urine Bilirubin Negative Urine Urobilinogen Negative Ur Leukocyte Esterase 1+ H Urine WBC (Auto) 4 Urine RBC (Auto) 1 Ur Epithelial Cells Rare Urine Bacteria Moderate RPR Titer 03/29/18 04/07/18 07:13 09:30 WBC RBC Hgb Hct MCV MCH MCHC RDW Plt Count MPV Sodium 137 Potassium 3.7 Chloride 96 L Carbon Dioxide 34 H Anion Gap 7 L BUN 36 H Creatinine 1.7 H Creat Clearance w eGFR 32.08 Random Glucose 93 Calcium 9.6 Total Bilirubin 0.3 AST 37 ALT 44 Alkaline Phosphatase 71 D Total Protein 8.2 Albumin 3.8 Urine Color Urine Appearance Urine pH Ur Specific [place] Urine Protein Urine Glucose (UA) Urine Ketones Urine Blood Urine Nitrite Urine Bilirubin Urine Urobilinogen Ur Leukocyte Esterase Urine WBC (Auto) Urine RBC (Auto) Ur Epithelial Cells Urine Bacteria RPR Titer Nonreactive OBJ: ALERT AND ORIENTED X 3 SKIN WARM AND DRY EXT NO EDEMA, FULL ROM NEURO CN [id number] GROSSLY INTACT PSYCH IRRITABLE DURING VISIT A/P: HTN: ELEVATED BUT IMPROVING WILL CONTINUE TO MONITOR CLINICALLY AND CONTINUE MEDICATION ELEVATED BUN/CR: PATIENT EXPLAINED REASON FOR LAB MONITORING OF KIDNEY FUNCTION. AGREED TO HAVE CMP LABS DRAWN TOMORROW MORNING WITHDRAWAL SYNDROME: WILL INCREASE SUBOXONE TO 6MG BID STARTING TOMORROW AND CONTINUE TO MONITOR CLINICALLY. ENCOURAGED ORAL FLUIDS.
[2018-04-16] MEDS: MONTELUKAST NA 10 MG TABLET PO SCH (21:08)
[2018-04-16] MEDS: diphenhydrAMINE HCL 25 MG CAPSULE (FP) PO SCH (21:08)
[2018-04-16] MEDS: THIAMINE HCL 100 MG TABLET (FP) PO SCH (21:08)
[2018-04-16] MEDS: traZODone HCL 50 MG TABLET (FP) PO SCH (21:08)
[2018-04-16] MEDS: LIDOCAINE PATCH REMOVAL MC SCH (21:09)
[2018-04-16] MEDS ORDERED: BUPRENORPHINE/NALOXONE 2 MG/0.5 MG FILM PACKET SL SCH (22:06)
[2018-04-17] MEDS: SODIUM CHLORIDE NASAL SPRAY 44 ML BOTTLE NS SCH ×3 (06:43→21:03)
[2018-04-17] MEDS: hydrALAZINE HCL 50 MG TABLET (FP) PO SCH ×4 (06:44→23:02)
[2018-04-17] MEDS: cloNIDine HCL 0.1 MG TABLET PO SCH ×2 (06:44→17:15)
[2018-04-17] MEDS: CYCLOBENZAPRINE HCL 5 MG TABLET PO SCH ×3 (06:44→21:01)
[2018-04-17] MEDS: hydrOXYzine PAMOATE 50 MG CAPSULE (FP) PO PRN ×4 (06:44→23:02)
[2018-04-17] MEDS: PRENATAL VITAMINS W/ FOLIC ACID TABLET (FP) PO SCH (10:17)
[2018-04-17] MEDS: HYDROCHLOROTHIAZIDE 25 MG TABLET (FP) PO SCH (10:17)
[2018-04-17] MEDS: PANTOPRAZOLE 20 MG TABLET (FP) PO SCH (10:17)
[2018-04-17] MEDS: LISINOPRIL 20 MG TABLET (FP) PO SCH ×2 (10:17→21:04)
[2018-04-17] MEDS: LIDOCAINE 5% TOPICAL PATCH TP SCH (10:18)
[2018-04-17] MEDS: amLODIPine BESYLATE 5 MG TABLET (FP) PO SCH (10:18)
[2018-04-17] MEDS: BUPRENORPHINE/NALOXONE 2 MG/0.5 MG FILM PACKET SL SCH ×2 (10:19→21:02)
[2018-04-17 10:43] LABS: CHLORIDE 97 mmol/L (98-107); POTASSIUM 4.3 mmol/L (3.5-5.1); SODIUM 137 mmol/L (136-145)
[2018-04-17 11:27] LABS: ALBUMIN 3.3 g/dl (3.4-5.0); ALK PHOS 63 U/L (45-117); ANION GAP 8 MMOL/L (8-16); BILIRUBIN,TOTAL 0.2 mg/dL (0.2-1); BLOOD UREA NITROGEN 39 mg/dL (7-18); CALCIUM 9.4 mg/dL (8.5-10.1); CO2 32 mmol/L (21-32); CREATININE 1.6 mg/dL (0.55-1.3); GLUCOSE,RANDOM 79 mg/dL (74-106); SGOT/AST 25 U/L (15-37); SGPT/ALT 36 U/L (13-61); TOT PROT 7.3 g/dl (6.4-8.2)
--- NOTE | 2018-04-17 16:03 | PN ---
[facility] Progress Note Note: Vital Signs Temperature 97.9 F 04/17/18 07:31 Pulse Rate 89 04/17/18 12:30 Respiratory Rate 18 04/17/18 07:31 Blood Pressure 142/95 04/17/18 12:30 O2 Sat by Pulse Oximetry (%) Patient currently stable. Patient schedule to complete this program 04/18/18. Medications transmitted electronically to listed pharmacy. Patient to follow up with primary medial provider within a week. If worsening symptoms seek medical attention or go to local ED.
--- NOTE | 2018-04-17 16:39 | PN ---
[facility] Progress Note Vital Signs: Vital Signs Period Temp Pulse Resp BP Sys/Cruz Pulse Ox Last 24 Hr 97.9 F-98.1 F 85-105 18-18 134-152/80-100 Date of Session: 04/17/18 Chief Complaint:: Discharge visit HPI: Alcohol,Opioid dependence comorbid with Substance induced mood disorder. ROS: BA,HTN. Current Medications: Active Medications Generic Name Dose Route Start Last Admin Trade Name Freq PRN Reason Stop Dose Admin Acetaminophen 650 mg 03/28/18 19:06 04/13/18 10:16 Tylenol - PO 650 mg Q4H PRN Administration FEVER Albuterol Sulfate 2 puff 03/28/18 19:08 Ventolin Hfa Inhaler - IH Q4H PRN SHORT OF BREATH/WHEEZING Amlodipine Besylate 5 mg 04/13/18 10:00 04/17/18 10:18 Norvasc - PO 5 mg DAILY EDNA Administration Benzocaine 1 applic 04/03/18 14:30 Anbesol - MM Q2H PRN dentalgia Buprenorphine/Naloxone 3 each 04/16/18 22:30 04/17/18 10:19 Suboxone 2mg/0.5mg Sl Film - SL 3 each BID EDNA Administration Clonidine 0.2 mg 04/04/18 18:00 04/17/18 06:44 Catapres - PO 0.2 mg BID@0600,1800 EDNA Administration Colloidal Oatmeal 1 applic 04/12/18 13:05 04/13/18 13:50 Aveeno Soap - TP 1 applic DAILY PRN Administration HYGEINE Cyclobenzaprine HCl 5 mg 03/28/18 22:45 04/17/18 13:48 Cyclobenzaprine Hcl PO 5 mg TID EDNA Administration Diphenhydramine HCl 25 mg 03/28/18 22:00 04/16/18 21:08 Benadryl - PO 25 mg HS EDNA Administration Eucalyptus/Menthol/Phenol/Sorbitol 1 each 03/28/18 19:06 Cepastat Lozenge - MM Q4H PRN SORE THROAT Guaifenesin 10 ml 03/28/18 19:06 Robitussin Dm - PO Q6H PRN COUGH Hydralazine HCl 50 mg 04/11/18 18:00 04/17/18 12:29 Apresoline - PO 50 mg Q6HPO EDNA Administration Hydrochlorothiazide 50 mg 04/09/18 10:00 04/17/18 10:17 Hctz - PO 50 mg DAILY EDNA Administration Hydroxyzine Pamoate 50 mg 03/29/18 10:34 04/17/18 12:30 Vistaril - PO 50 mg Q4H PRN Administration ANXIETY Ibuprofen 400 mg 03/28/18 19:06 04/15/18 06:12 Motrin - PO 400 mg Q6H PRN Administration Pain level 4-6 Lidocaine 1 patch 03/31/18 10:00 04/17/18 10:18 Lidoderm Patch - TP 1 patch DAILY EDNA Administration Lisinopril 20 mg 03/28/18 22:00 04/17/18 10:17 Prinivil PO 20 mg BID EDNA Administration Loperamide HCl 4 mg 03/28/18 19:06 Imodium - PO Q6H PRN DIARRHEA Melatonin 5 mg 03/28/18 22:00 04/05/18 21:21 Melatonin PO 5 mg HS PRN Administration INSOMNIA Miscellaneous 1 each 03/31/18 22:00 04/16/18 21:09 Lidoderm Patch Removal MC 1 each DAILY@2200 EDNA Administration Montelukast Sodium 10 mg 04/10/18 22:00 04/16/18 21:08 Singulair - PO 10 mg HS EDNA Administration Pantoprazole Sodium 20 mg 04/11/18 20:15 04/17/18 10:17 Protonix - PO 20 mg DAILY EDNA Administration Multivit/Folic Acid/Iron 1 tab 03/29/18 10:00 04/17/18 10:17 Vitamins (Sjr) - PO 1 tab DAILY EDNA Administration Sodium Chloride 2 spray 04/10/18 14:00 04/17/18 13:49 [place] Nasal [place] - NS Not Given TID EDNA Thiamine HCl 100 mg 03/28/18 22:00 04/16/18 21:08 Vitamin B1 - PO 100 mg HS EDNA Administration Trazodone HCl 50 mg 03/29/18 22:00 04/16/18 21:08 Desyrel - PO 50 mg HS EDNA Administration Current Side Effect: No Lab tests ordered: No Lab tests reviewed: Yes Provider note:: patient will complete this program tomorrow 04/18/18.She has met her treatment goals and will continue to address her issues on outpatient basis at [facility].patient will continue Trazodone 50 mg po hs.script s for 30 days provided. supportive therapy provided focusing on relapse prevention. Patient is stable for discharge tomorrow 04/18/18. Total face to face time:: 30 Mental Status Exam - Mental Status Exam Alert and Oriented to: Time, Place, Person Cognitive Function: Grossly Intact Patient Appearance: Well Groomed Mood: Hopeful, Euthymic Affect: Appropriate, Mood Congruent Patient Behavior: Cooperative Speech Pattern: Clear Voice Loudness: Normal Thought Process: Goal Oriented Thought Disorder: Not Present Hallucinations: Denies Suicidal Ideation: Denies Homicidal Ideation: Denies Insight/Judgement: Fair Sleep: Fair Appetite: Good Muscle strength/Tone: Normal Gait/Station: Normal Psychiatric Treatment Plan - Problem List (1) Asthma Current Visit: Yes (2) Hypertension Current Visit: Yes Qualifiers: Hypertension type: essential hypertension Qualified Code(s): I10 - Essential (primary) hypertension (3) Opioid dependence with withdrawal Current Visit: Yes (4) Alcohol dependence Current Visit: Yes (5) HTN (hypertension) Current Visit: No Qualifiers: Hypertension type: unspecified Qualified Code(s): I10 - Essential (primary ) hypertension (6) Bronchial asthma Current Visit: Yes (7) Substance-induced sleep disorder Current Visit: Yes (8) Encounter for monitoring Suboxone maintenance therapy Current Visit: Yes
[2018-04-17] MEDS: traZODone HCL 50 MG TABLET (FP) PO SCH (21:01)
[2018-04-17] MEDS: diphenhydrAMINE HCL 25 MG CAPSULE (FP) PO SCH (21:01)
[2018-04-17] MEDS: MONTELUKAST NA 10 MG TABLET PO SCH (21:01)
[2018-04-17] MEDS: LIDOCAINE PATCH REMOVAL MC SCH (21:03)
[2018-04-17] MEDS: THIAMINE HCL 100 MG TABLET (FP) PO SCH (21:04)
[2018-04-17] MEDS ORDERED: BUPRENORPHINE/NALOXONE 2 MG/0.5 MG FILM PACKET SL SCH (22:00)
[2018-04-18] MEDS: SODIUM CHLORIDE NASAL SPRAY 44 ML BOTTLE NS SCH (06:29)
[2018-04-18] MEDS: cloNIDine HCL 0.1 MG TABLET PO SCH (06:30)
[2018-04-18] MEDS: hydrALAZINE HCL 50 MG TABLET (FP) PO SCH (06:30)
[2018-04-18] MEDS: CYCLOBENZAPRINE HCL 5 MG TABLET PO SCH (06:30)
[2018-04-18] MEDS: hydrOXYzine PAMOATE 50 MG CAPSULE (FP) PO PRN (06:30)
[2018-04-18 07:30] VITALS: TEMP 98
[2018-04-18] MEDS: LIDOCAINE 5% TOPICAL PATCH TP SCH (09:01)
[2018-04-18] MEDS: amLODIPine BESYLATE 5 MG TABLET (FP) PO SCH (09:01)
[2018-04-18] MEDS: PANTOPRAZOLE 20 MG TABLET (FP) PO SCH (09:01)
[2018-04-18] MEDS: LISINOPRIL 20 MG TABLET (FP) PO SCH (09:01)
[2018-04-18] MEDS: PRENATAL VITAMINS W/ FOLIC ACID TABLET (FP) PO SCH (09:02)
[2018-04-18] MEDS: HYDROCHLOROTHIAZIDE 25 MG TABLET (FP) PO SCH (09:02)
[2018-04-18] MEDS: BUPRENORPHINE/NALOXONE 2 MG/0.5 MG FILM PACKET SL SCH (09:03)
[2018-04-18 10:13] VITALS: BP 146/92; PULSE 106
== END 2018-04-18 09:52 | disposition home or self-care (01) | DRG 772 ==
LOC: YASAS 11:58 → Y3E 18:02
PROVIDERS: ADMIT Psychiatry & Neurology Psychiatry; ATTEND Psychiatry & Neurology Psychiatry
PROC: HZ42ZZZ Group Counseling for Substance Abuse Treatment, Cognitive-Behavioral (ICD-10-PCS; principal; 2018-03-28)
DX: F11.23 Opioid dependence with withdrawal (principal); F10.20 Alcohol dependence, uncomplicated; F14.23 Cocaine dependence with withdrawal; F19.282 Other psychoactive substance dependence with psychoactive substance-induced sleep disorder; F32.9 Major depressive disorder, single episode, unspecified; I16.0 Hypertensive urgency; J45.909 Unspecified asthma, uncomplicated; K08.89 Other specified disorders of teeth and supporting structures; K04.7 Periapical abscess without sinus; Z51.81 Encounter for therapeutic drug level monitoring
CPT/HCPCS: 36415; 80053; 81003; 81015; 85027; 86593; 93005; 93010; J0735

== ENCOUNTER 2018-04-02 13:21 | Emergency (ER) | payer OTHER ==
[2018-04-02 13:47] VITALS: TEMP 98.2; BMI 22.8
--- NOTE | 2018-04-02 13:59 | PDOC ---
Attending Attestation - Resident Resident Name: Inocencio Cronin - ED Attending Attestation I have performed the following: I have examined & evaluated the patient, The case was reviewed & discussed with the resident, I agree w/resident's findings & plan, Exceptions are as noted - HPI HPI: Ms Rogers is a 47 yo F who presents to the ER from [facility] She has a h/o HTN, Alcohol abuse, Heroin Abuse, Cocaine Abuse she has been non compliant with her medications for the past 5 months No complaints of chest pain, shortness of breath - Physicial Exam PE: 04/02/18 17:34 04/02/18 15:08 General Appearance: Nourished. No Apparent Distress HEENT: EOMI, ANÍBAL. No Pharyngeal Erythema, Tonsillar Exudate, Tonsillar Erythema Neck: No Cervical Lymphadenopathy Respiratory/Chest: Lungs Clear, Normal Breath Sounds. No Crackles, Rales, Rhonchi, Wheezing Cardiovascular: Regular Rhythm, Regular Rate. No Murmur, Gallops, Rubs Gastrointestinal/Abdominal: Normal Bowel Sounds, Soft. No Guarding, Rebound, Tenderness Musculoskeletal: No CVA Tenderness Extremity: Normal Capillary Refill Integumentary: Normal Color, Dry, Warm Neurologic: Fully Oriented, Alert, Normal Mood/Affect, Normal Response, - Medical Decision Making 04/02/18 17:34 Laboratory Tests 04/02/18 04/02/18 14:35 14:35 WBC 5.3 Hgb 12.8 Hct 39.2 Plt Count 241 BUN 40 H Creatinine 1.7 H Will Discharge to home Follow up with PMD Consult can be obtained at [facility] if pt needs this
--- NOTE | 2018-04-02 14:02 | PDOC ---
History of Present Illness - General Chief Complaint: Blood Pressure Problem Stated Complaint: HTN Time Seen by Provider: 04/02/18 13:45 - History of Present Illness Initial Comments: 04/02/18 14:58 The patient is a 47 year old female with a history of HTN, Alcohol abuse, Heroin Abuse, Cocaine Abuse who presents from detox for evaluation of high blood pressure. The patient has not followed with a physician in 2 years and has not taken her outpatient antihypertensives in over 5 months. She was noted to be hypertensive at detox and was referred to the ED for further evaluation. The patient reports some baseline SOB, but otherwise denies fevers, chills, chest pain, nausea, vomiting, abdominal pain, numbness, tingling, weakness, or changes with urination or bowel movements. Past History - Past Medical History Allergies/Adverse Reactions: Allergies Allergy/AdvReac Type Severity Reaction Status Date / Time No Known Allergies Allergy Verified 04/02/18 13:47 Home Medications: Ambulatory Orders Clonidine HCl [Catapres] 0.2 mg PO BID 03/28/18 Hydrochlorothiazide [Hctz -] 25 mg PO DAILY 03/28/18 Lisinopril 20 mg PO BID 03/28/18 Anemia: No Asthma: Yes Cancer: No Cardiac Disorders: No CVA: No COPD: No CHF: No Dementia: No Diabetes: No GI Disorders: No Disorders: No HTN: Yes Hypercholesterolemia: No Kidney Stones: No Liver Disease: No Seizures: No Thyroid Disease: No - Reproductive History PID: No - Suicide/Smoking/Psychosocial Hx Smoking History: Unknown if ever smoked Have you smoked in the past 12 months: No Hx Alcohol Use: Yes Drug/Substance Use Hx: Yes Substance Use Type: Cocaine, Heroin, Marijuana, Opiates Hx Substance Use Treatment: No Review of Systems - Review of Systems Comments:: 04/02/18 15:07 Constitutional: No fevers, chills, fatigue, malaise HEENT: No Rhinorrhea, nasal congestion, visual changes Cardiovascular: No chest pain, syncope, palpitations, lightheadedness Respiratory: SOB. No Cough, Hemoptysis, Gastrointestinal: No Abdominal pain, Nausea, Vomiting, Constipation, Diarrhea, Melena Genitourinary: No Dysuria, Frequency, Urgency, Hesitancy, Hematuria, Flank pain Musculoskeletal: No Myalgia, arthralgia Skin: No rashes, itching, bruising, pallor Neurologic: No Dizziness, Numbness, Weakness, or Tingling Psychiatric: No Hallucinations. No SI or HI *Physical Exam - Vital Signs Last Vital Signs Temp Pulse Resp BP Pulse Ox 98.2 F 80 18 143/100 99 04/02/18 13:45 04/02/18 13:45 04/02/18 13:45 04/02/18 13:45 04/02/18 13:45 - Physical Exam Comments: 04/02/18 15:08 General Appearance: Nourished. No Apparent Distress HEENT: EOMI, ANÍBAL. No Pharyngeal Erythema, Tonsillar Exudate, Tonsillar Erythema Neck: No Cervical Lymphadenopathy Respiratory/Chest: Lungs Clear, Normal Breath Sounds. No Crackles, Rales, Rhonchi, Wheezing Cardiovascular: Regular Rhythm, Regular Rate. No Murmur, Gallops, Rubs Gastrointestinal/Abdominal: Normal Bowel Sounds, Soft. No Guarding, Rebound, Tenderness Musculoskeletal: No CVA Tenderness Extremity: Normal Capillary Refill Integumentary: Normal Color, Dry, Warm Neurologic: Fully Oriented, Alert, Normal Mood/Affect, Normal Response, Heart Score/ECG Review #1 ECG reviewed & interpreted by me at: 15:35 (T wave inversions in v4-v6) General ECG Interpretation: Sinus Rhythm, Normal Rate, Normal Intervals, No acute ischemic changes ED Treatment Course - LABORATORY CBC & Chemistry Diagram: 04/02/18 14:35 04/02/18 14:35 Medical Decision Making - Medical Decision Making 04/02/18 15:08 The patient is a 47 year old female with a history of HTN, Alcohol abuse, Heroin Abuse, Cocaine Abuse who presents from detox for evaluation of high blood pressure. Given the patient's history and physical exam, we will obtain a cbc, cmp, ekg to evaluate further. The patient received Metoprolol, Hydrochlorothiazide, Lisinipril prior to presentation to the ED with improvement in her blood pressure. We will treat with some tylenol and continue to monitor and reassess while here in the ED. 04/02/18 15:45 cbc, cmp, are unremarkable. The patient's bp has improved from this morning after hypertensive medications. She appears clinically well and is asymptomatic on exam. We are comfortable discharging the patient back to rehab with primary care provider follow up. We discussed the results, plan, and return precautions with the patient who voiced understanding and is agreeable with the plan. *DC/Admit/Observation/Transfer Diagnosis at time of Disposition: Hypertension Qualifiers: Hypertension type: unspecified Qualified Code(s): I10 - Essential (primary) hypertension - Discharge Dispostion Disposition: HOME Condition at time of disposition: Stable Decision to Admit order: No - Referrals - Patient Instructions Printed Discharge Instructions: DI for High Blood Pressure Additional Instructions: Please return to the ER if you experience concerning or worsening symptoms including chest pain or weakness. Your lab results were normal here in the ER. Please continue to take your home hypertensive medications and have your doctor adjust them as needed. Please call to schedule a follow up appointment with your primary care provider within 2-3 days to discuss your ER visit and further management of your symptoms. - Post Discharge Activity
[2018-04-02] MEDS ORDERED: ACETAMINOPHEN 325 MG TABLET (FP) PO ONE (14:04)
[2018-04-02] MEDS ORDERED: ACETAMINOPHEN 325 MG TABLET (FP) ONE (14:14)
[2018-04-02 14:46] LABS: EOS % 1.7 % (0-4.5); HEMATOCRIT 39.2 % (32.4-45.2); HEMOGLOBIN 12.8 GM/dL (10.7-15.3); LYMPH % 33.3 % (8-40); MCH 25.4 pg (25.7-33.7); MCHC 32.7 g/dl (32.0-36.0); MEAN CELL VOLUME 77.7 fl (80-96); MEAN PLT VOLUME 8.7 fl (7.5-11.1); MONO % 12.3 % (3.8-10.2); NEUT % 51.7 % (42.8-82.8); PLATELET COUNT 241 K/MM3 (134-434); RBC 5.05 M/mm3 (3.60-5.2); RDW 16.8 % (11.6-15.6); WHITE BLOOD COUNT 5.3 K/mm3 (4.0-10.0)
[2018-04-02 15:11] LABS: ALBUMIN 3.4 g/dl (3.4-5.0); ANION GAP 11 MMOL/L (8-16); BILIRUBIN,TOTAL 0.2 mg/dL (0.2-1.0); BLOOD UREA NITROGEN 40 mg/dL (7-18); CALCIUM 9.4 mg/dL (8.5-10.1); CHLORIDE 98 mmol/L (98-107); CO2 32 mmol/L (21-32); CREATININE 1.7 mg/dL (0.55-1.02); GLUCOSE,RANDOM 90 mg/dL (74-106); POTASSIUM 3.9 mmol/L (3.5-5.1); SGOT/AST 23 U/L (15-37); SGPT/ALT 46 U/L (12-78); SODIUM 141 mmol/L (136-145); TOT PROT 7.4 g/dl (6.4-8.2)
[2018-04-02 15:12] LABS: ALK PHOS 61 U/L (45-117)
--- NOTE | 2018-04-02 15:47 | EKG ---
Test Reason : Blood Pressure : / mmHG Vent. Rate : 071 BPM Atrial Rate : 071 BPM P-R Int : 148 ms QRS Dur : 076 ms QT Int : 456 ms P-R-T Axes : 041 -08 094 degrees QTc Int : 495 ms NORMAL SINUS RHYTHM SEPTAL INFARCT , AGE UNDETERMINED T WAVE ABNORMALITY, CONSIDER LATERAL ISCHEMIA ABNORMAL ECG WHEN COMPARED WITH ECG OF 28-MAR-2018 20:14, SEPTAL INFARCT IS NOW PRESENT Confirmed by Parker Garnett ([id number]) on 04/02/2018 3:46:48 PM Referred By: Confirmed By:Parker Garnett
[2018-04-02] MEDS ORDERED: cloNIDine HCL 0.1 MG TABLET PO ONE (18:42)
[2018-04-02] MEDS ORDERED: cloNIDine HCL 0.1 MG TABLET ONE (18:43)
[2018-04-02 18:53] VITALS: BP 150/118; PULSE 70
== END 2018-04-02 18:53 | disposition home or self-care (01) ==
LOC: JER 13:21
DX: I10 Essential (primary) hypertension (principal); F11.10 Opioid abuse, uncomplicated; F10.10 Alcohol abuse, uncomplicated; F14.10 Cocaine abuse, uncomplicated
CPT/HCPCS: 36415; 80053; 85025; 93005; 93010; 99282-25; J0735

== ENCOUNTER 2018-07-18 16:02 | Inpatient (IN) | payer OTHER ==
[2018-07-18 16:08] VITALS: BMI 24.5
--- NOTE | 2018-07-18 16:54 | HP ---
CIWA Score - Admission Criteria [facility]AS Guidelines: Admission for Medically Managed Detox: Requires at least one of the followin. CIWA greater than 12 2. Seizures within the past 24 hours 3. Delirium tremens within the past 24 hours 4. Hallucinations within the past 24 hours 5. Acute intervention needed for co occurring medical disorder 6. Acute intervention needed for co occurring psychiatric disorder 7. Severe withdrawal that cannot be handled at a lower level of care (continued vomiting, continued diarrhea, abnormal vital signs) requiring intravenous medication and/or fluids 8. Admission ROS S - HPI Chief Complaint: SEEKING REHAB SERVICES Allergies/Adverse Reactions: Allergies Allergy/AdvReac Type Severity Reaction Status Date / Time No Known Allergies Allergy Verified 07/18/18 18:20 History of Present Illness: 47 Y.O.WOMAN WITH HISTORY OF HEROIN DEPENDENCE IS HERE SEEKING REHAB SERVICES. SHE REPORTS SHE COMPLETED DETOX AT [facility] AND WAS DISCHARGED TODAY. Exam Limitations: No Limitations - Ebola screening Have you traveled outside of the country in the last 21 days: No Have you had contact with anyone from an Ebola affected area: No Have you been sick,other than usual withdrawal symptoms: No Do you have a fever: No - Review of Systems Constitutional: Chills, Night Sweats EENT: reports: Blurred Vision Respiratory: reports: Shortness of Breath Cardiac: reports: No Symptoms Reported GI: reports: No Symptoms Reported : reports: No Symptoms Reported Musculoskeletal: reports: Back Pain Integumentary: reports: No Symptoms Reported Neuro: reports: No Symptoms reported Endocrine: reports: No Symptoms Reported Hematology: reports: No Symptoms Reported Psychiatric: reports: Orientated x3, Depressed Other Systems: Reviewed and Negative Patient History - Patient Medical History Hx Anemia: No Hx Asthma: Yes Hx Chronic Obstructive Pulmonary Disease (COPD): No Hx Cancer: No Hx Cardiac Disorders: No Hx Congestive Heart Failure: No Hx Hypertension: Yes Hx Hypercholesterolemia: No Hx Pacemaker: No HX Cerebrovascular Accident: No Hx Seizures: No Hx Dementia: No Hx Diabetes: No Hx Gastrointestinal Disorders: No Hx Liver Disease: No Hx Genitourinary Disorders: No Hx Sexually Transmitted Disorders: No Hx Renal Disease (ESRD): No Hx Thyroid Disease: No Hx Human Immunodeficiency Virus (HIV): No Hx Hepatitis C: No Hx Depression: Yes Hx Suicide Attempt: No Hx Bipolar Disorder: No Hx Schizophrenia: No - Patient Surgical History Past Surgical History: No - PPD History Previous Implant?: Yes Documented Results: Negative w/o proof PPD to be Administered?: Yes - Reproductive History Patient is a Female of Child Bearing Age (11 -55 yrs old): Yes Last Menstrual Period: 03/30/18 Patient : No - Smoking Cessation Smoking history: Former smoker Have you smoked in the past 12 months: No Initiated information on smoking cessation: No 'Breaking Loose' booklet given: 07/18/18 - Substance & Tx. History Hx Alcohol Use: No Hx Substance Use: Yes Substance Use Type: Heroin Hx Substance Use Treatment: Yes (REHAB:03/28/18-04/18/18) - Substances Abused Heroin Route: Inhalation () Frequency: 3-6 times per week Amount used: 4-5 BUNDLES Age of first use: 43 Date of Last Use: 07/10/18 Family Disease History - Family Disease History Family History: Denies Admission Physical Exam [facility] - Vital Signs Vital Signs: Vital Signs - 24 hr 07/18/18 16:07 Temperature 99.0 F Pulse Rate 78 Respiratory 18 Rate Blood Pressure 169/121 H - Physical General Appearance: Yes: No Apparent Distress HEENTM: Yes: Hearing grossly Normal, Normocephalic, Normal Voice Respiratory: Yes: Chest Non-Tender, Lungs Clear, Normal Breath Sounds, No Respiratory Distress, No Accessory Muscle Use Neck: Yes: No masses,lesions,Nodules Breast: Yes: Breast Exam Deferred Cardiology: Yes: Regular Rhythm, Regular Rate Abdominal: Yes: Normal Bowel Sounds, Non Tender Genitourinary: Yes: Other Back: Yes: Normal Inspection Musculoskeletal: Yes: full range of Motion, Gait Steady Extremities: Yes: Normal Capillary Refill, Normal Inspection, Normal Range of Motion Neurological: Yes: Alert, Normal Mood/Affect, Normal Response Integumentary: Yes: Normal Color, Dry, Warm Lymphatic: Yes: Within Normal Limits - Diagnostic (1) Hypertension Current Visit: Yes Status: Chronic Qualifiers: Hypertension type: essential hypertension Qualified Code(s): I10 - Essential (primary) hypertension (2) Opioid dependence with withdrawal Current Visit: Yes Status: Chronic (3) Asthma Current Visit: Yes Status: Chronic Cleared for Admission [facility] - Detox or Rehab [facility] Level of Care: Observation Bed Detox Regimen/Protocol: Not Applicable Claeared for Rehab Admission: Yes [facility] Breath Alcohol Content Breath Alcohol Content: 0 Urine Pregancy Test - Result Urine Test Results: Negative- NO Line Present Urine Drug Screen - Results Drug Screen Negative: No Urine Drug Screen Results: MTD-Methadone Inpatient Rehab Admission - Initial Determination Are CD services needed?: Yes Free of communicable disease: Yes Not in need of hospitalization: Yes - Rehab Admission Criteria Previous failed treatment: Yes Poor recovery environment: Yes Comorbidities: Yes Lacks judgement: Yes Patient is meeting Inpatient Rehab admission criteria:: Yes
[2018-07-18] MEDS ORDERED: ACETAMINOPHEN 325 MG TABLET (FP) PO PRN (17:04)
[2018-07-18] MEDS ORDERED: hydrOXYzine PAMOATE 50 MG CAPSULE (FP) PO PRN (17:04)
[2018-07-18] MEDS ORDERED: MAG HYDROX/AL HYDROX/SIMETH 30 ML UNIT-DOSE CUP PO PRN (17:04)
[2018-07-18] MEDS ORDERED: LOPERAMIDE HCL 2 MG CAPSULE PO PRN (17:04)
[2018-07-18] MEDS ORDERED: MAGNESIUM CITRATE 300 ML BOTTLE PO PRN (17:04)
[2018-07-18] MEDS ORDERED: IBUPROFEN 400 MG TABLET (FP) PO PRN (17:04)
[2018-07-18] MEDS ORDERED: MENTHOL/PHENOL 1 EACH UD MM PRN (17:04)
[2018-07-18] MEDS ORDERED: guaiFENesin/D-METHORPHAN HB 10 ML UNIT-DOSE CUPS PO PRN (17:04)
[2018-07-18] MEDS ORDERED: P-EPHED 60MG/TRIPROLIDI 2.5MG TABLET PO PRN (17:04)
[2018-07-18] MEDS ORDERED: MAGNESIUM HYDROX 2400MG/30ML ORAL SUSPENSION 30 ML CUP PO PRN (17:04)
[2018-07-18] MEDS ORDERED: ALBUTEROL SO4 8 GM HFA INHALER IH PRN (17:06)
[2018-07-18] MEDS ORDERED: TUBERCULIN PPD 5 TU/0.1ML VIAL ID ONE (19:00)
[2018-07-18] MEDS: THIAMINE HCL 100 MG TABLET (FP) PO SCH (21:38)
[2018-07-18] MEDS: cloNIDine HCL 0.1 MG TABLET PO SCH (21:39)
[2018-07-18] MEDS: LISINOPRIL 20 MG TABLET (FP) PO SCH (21:39)
[2018-07-18] MEDS ORDERED: MELATONIN 5 MG TABLETS PO PRN (22:00)
--- NOTE | 2018-07-18 22:07 | PN ---
[facility] Progress Note Note: Psychiatry Attending's on-call note : Informed of patient's admission to [facility]. Asked to enter order for trazodone. Chart reviewed. Melatonin is already ordered for insomnia. No intervention at this time. Psychiatric evaluation in AM.
[2018-07-18 23:12] LABS: URINE APPEARANCE CLOUDY; URINE BILIRUBIN NEGATIVE (<2.0 mg/dL); URINE COLOR DKYELLOW; URINE GLUCOSE (UA) NEGATIVE (NEGATIVE); URINE KETONE NEGATIVE (NEGATIVE); URINE LEUK ESTERASE 1+ (NEGATIVE); URINE NITRITE NEGATIVE (NEGATIVE); URINE PROTEIN NEGATIVE (NEGATIVE); URINE UROBILINOGEN NEGATIVE mg/dL (0.2-1.0)
[2018-07-18 23:18] LABS: EPI CELLS FEW /HPF (FEW); URINE BACTERIA RARE /hpf (NONE SEEN); URINE MUCUS RARE
--- NOTE | 2018-07-19 07:54 | PN ---
[facility] Progress Note Note: seen for abn ekg sinus darwin- hr 56bpm t wave abn, consider lateral ischemia prolonged qt- qt-558/[id number] abn ecg client is asymptomatic. denies c.p, sob, dizziness Vital Signs Temperature 97.8 F 07/19/18 07:27 Pulse Rate 58 L 07/19/18 07:27 Respiratory Rate 16 07/19/18 07:27 Blood Pressure 157/93 07/19/18 07:27 O2 Sat by Pulse Oximetry (%) previous ekg reviewed repeat ekg 07/20/2018 increase po hydration med lsit reveiwed monitor closely for prolong qt agents
--- NOTE | 2018-07-19 09:51 | HP ---
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 Medical History: Significant for HTN,LOw back pain. Psychiatric History: No previous psychiatric history but reports some sleeping difficulties on and off. Physical/Sexual Abuse/Trauma History: Patient denies. Vital Signs: Vital Signs - 24 hr 07/18/18 07/18/18 07/19/18 16:07 21:48 03:30 Temperature 99.0 F 97.4 F L Pulse Rate 78 63 Respiratory 18 18 16 Rate Blood Pressure 169/121 H 146/86 07/19/18 07:27 Temperature 97.8 F Pulse Rate 58 L Respiratory 16 Rate Blood Pressure 157/93 Allergies/Adverse Reactions: Allergies Allergy/AdvReac Type Severity Reaction Status Date / Time No Known Allergies Allergy Verified 07/18/18 18:20 Date of last physical exam: 07/18/18 Concur with the findings of this exam: Yes - Substance Abuse/Tx History Hx Alcohol Use: Yes (drinking since 23 yo,1 pint of hard liquors,not regurlarly) Hx Substance Use: Yes (heroin since 34 yo,sniffing 20 bags daily) Substance Use Type: Alcohol, Cocaine, Heroin Hx Substance Use Treatment: Yes (reports 2 months of abstinence is the longest) Mental Status Exam - Mental Status Exam Alert and Oriented to: Time, Place, Person Cognitive Function: Grossly Intact Patient Appearance: Well Groomed Mood: Euthymic Affect: Mood Congruent, Normal Range Patient Behavior: Cooperative Speech Pattern: Clear Voice Loudness: Normal Thought Process: Goal Oriented Thought Disorder: Not Present Hallucinations: Denies Suicidal Ideation: Denies Homicidal Ideation: Denies Insight/Judgement: Fair Sleep: Fair Appetite: Fair Muscle strength/Tone: Normal Gait/Station: Normal Psychiatric Findings - Problem List ([place] 1, 2,3) (1) Asthma Current Visit: Yes Status: Chronic (2) Hypertension Current Visit: Yes Status: Chronic Qualifiers: Hypertension type: essential hypertension Qualified Code(s): I10 - Essential (primary) hypertension (3) Encounter for monitoring Suboxone maintenance therapy Current Visit: Yes Status: Chronic (4) Substance-induced sleep disorder Current Visit: Yes Status: Chronic (5) Cocaine dependence Current Visit: Yes Status: Chronic (6) Opioid dependence Current Visit: Yes Status: Chronic (7) Alcohol dependence Current Visit: No Status: Chronic (8) HTN (hypertension) Current Visit: No Status: Chronic Qualifiers: Hypertension type: unspecified Qualified Code(s): I10 - Essential (primary ) hypertension (9) Low back pain Current Visit: Yes Status: Chronic (10) Bronchial asthma Current Visit: Yes Status: Chronic - Initial Treatment Plan Initial Treatment Plan: Trazodone 50 mg po hs.Will monitor progress.
[2018-07-19] MEDS: LISINOPRIL 20 MG TABLET (FP) PO SCH ×2 (10:38→21:10)
[2018-07-19] MEDS: cloNIDine HCL 0.1 MG TABLET PO SCH ×2 (10:38→21:10)
[2018-07-19] MEDS: HYDROCHLOROTHIAZIDE 25 MG TABLET (FP) PO SCH (10:38)
[2018-07-19] MEDS: PRENATAL VITAMINS W/ FOLIC ACID TABLET (FP) PO SCH (10:38)
[2018-07-19 10:52] LABS: HEMATOCRIT 36.3 % (32.4-45.2); HEMOGLOBIN 11.1 GM/dL (10.7-15.3); MCH 25.1 pg (25.7-33.7); MCHC 30.7 g/dl (32.0-36.0); MEAN CELL VOLUME 81.9 fl (80-96); PLATELET COUNT 222 K/MM3 (134-434); RBC 4.43 M/mm3 (3.60-5.2); RDW 15.3 % (11.6-15.6); WHITE BLOOD COUNT 7.6 K/mm3 (4.0-10.0)
[2018-07-19 11:32] LABS: ALBUMIN 3.2 g/dl (3.4-5.0); ALK PHOS 55 U/L (45-117); ANION GAP 10 MMOL/L (8-16); BILIRUBIN,TOTAL 0.2 mg/dL (0.2-1); BLOOD UREA NITROGEN 31 mg/dL (7-18); CALCIUM 8.8 mg/dL (8.5-10.1); CHLORIDE 101 mmol/L (98-107); CO2 30 mmol/L (21-32); GLUCOSE,RANDOM 88 mg/dL (74-106); POTASSIUM 3.4 mmol/L (3.5-5.1); SGOT/AST 25 U/L (15-37); SGPT/ALT 22 U/L (13-61); SODIUM 141 mmol/L (136-145); TOT PROT 6.6 g/dl (6.4-8.2)
--- NOTE | 2018-07-19 20:41 | PN ---
S Progress Note (SOAP) Subjective: Patient c/o opiate withdrawal symptoms. (increased anxiety, nasal congestion, mild nausea, tremors,cravings) States f/u to Suboxone provider after discharge in March, from [facility], fell through because of insurance issues. was able to get enough Suboxone to last until end of May before relapsing. was taking Suboxone just prior to beginning of heroin taper on 07/12/18 at [facility]. C/o chronic low back pain - sharp/achy. Pain goes as high as a 10. Curret[place] at 8. Objective: Alert and oriented. Pupils = 6 mm. Mild nasal congestion. Mild tremors of hands. Restlessness noted. FROM spine. Gait steady. Abd soft/NT. Vital Signs - 24 hr 07/18/18 07/19/18 07/19/18 21:48 03:30 07:27 Temperature 97.4 F L 97.8 F Pulse Rate 63 58 L Respiratory 18 16 16 Rate Blood Pressure 146/86 157/93 Laboratory Last Values WBC 7.6 K/mm3 (4.0-10.0) 07/19/18 07:00 RBC 4.43 M/mm3 (3.60-5.2) 07/19/18 07:00 Hgb 11.1 GM/dL (10.7-15.3) 07/19/18 07:00 Hct 36.3 % (32.4-45.2) 07/19/18 07:00 MCV 81.9 fl (80-96) 07/19/18 07:00 MCH 25.1 pg (25.7-33.7) L 07/19/18 07:00 MCHC 30.7 g/dl (32.0-36.0) L 07/19/18 07:00 RDW 15.3 % (11.6-15.6) 07/19/18 07:00 Plt Count 222 K/MM3 (134-434) 07/19/18 07:00 MPV 9.0 fl (7.5-11.1) 07/19/18 07:00 Sodium 141 mmol/L (136-145) 07/19/18 07:00 Potassium 3.4 mmol/L (3.5-5.1) L 07/19/18 07:00 Chloride 101 mmol/L (98-107) 07/19/18 07:00 Carbon Dioxide 30 mmol/L (21-32) 07/19/18 07:00 Anion Gap 10 MMOL/L (8-16) 07/19/18 07:00 BUN 31 mg/dL (7-18) H 07/19/18 07:00 Creatinine 2.0 mg/dL (0.55-1.3) H 07/19/18 07:00 Creat Clearance w eGFR 26.59 (>60) 07/19/18 07:00 Random Glucose 88 mg/dL (74-106) 07/19/18 07:00 Calcium 8.8 mg/dL (8.5-10.1) 07/19/18 07:00 Total Bilirubin 0.2 mg/dL (0.2-1) 07/19/18 07:00 AST 25 U/L (15-37) 07/19/18 07:00 ALT 22 U/L (13-61) 07/19/18 07:00 Alkaline Phosphatase 55 U/L (45-117) 07/19/18 07:00 Total Protein 6.6 g/dl (6.4-8.2) 07/19/18 07:00 Albumin 3.2 g/dl (3.4-5.0) L 07/19/18 07:00 Urine Color Dkyellow 07/18/18 23:00 Urine Appearance Cloudy 07/18/18 23:00 Urine pH 6.0 (5.0-8.0) 07/18/18 23:00 Ur Specific [place] 1.016 (1.010-1.035) 07/18/18 23:00 Urine Protein Negative (NEGATIVE) 07/18/18 23:00 Urine Glucose (UA) Negative (NEGATIVE) 07/18/18 23:00 Urine Ketones Negative (NEGATIVE) 07/18/18 23:00 Urine Blood 3+ (NEGATIVE) H 07/18/18 23:00 Urine Nitrite Negative (NEGATIVE) 07/18/18 23:00 Urine Bilirubin Negative (<2.0 mg/dL) 07/18/18 23:00 Urine Urobilinogen Negative mg/dL (0.2-1.0) 07/18/18 23:00 Ur Leukocyte Esterase 1+ (NEGATIVE) H 07/18/18 23:00 Urine WBC (Auto) 14 /hpf (3-5) 07/18/18 23:00 Urine RBC (Auto) 42 /hpf (0-3) 07/18/18 23:00 Ur Epithelial Cells Few /HPF (FEW) 07/18/18 23:00 Urine Bacteria Rare /hpf (NONE SEEN) 07/18/18 23:00 Urine Mucus Rare 07/18/18 23:00 HIV 1&2 Antibody Screen Negative 07/19/18 07:00 HIV P24 Antigen Negative 07/19/18 07:00 Labs reviewed. Assessment: Protracted opiate withdrawal Chronic low back pain w/ muscle spasms. Hypertension Plan: Paln: 1) Add one additional PRN CloNidine for withdrawal symptoms x 4 days. 2) To make arrangements w/ counselor to find a program that accepts patient's insurance in [facility]. 3) Start on Suboxone once a facility is located for discharge. 5) Lidocaine patch to back area daily 6) Flexeril 10 mg PO TID prn back spasms. 7) Continue other prescribed medications.
[2018-07-19] MEDS ORDERED: LIDOCAINE 5% TOPICAL PATCH TP SCH (21:00)
[2018-07-19] MEDS: THIAMINE HCL 100 MG TABLET (FP) PO SCH (21:10)
[2018-07-19] MEDS: traZODone HCL 50 MG TABLET (FP) PO SCH (21:10)
[2018-07-19] MEDS: CYCLOBENZAPRINE HCL 10 MG TABLET (FP) PO PRN (21:12)
[2018-07-19] MEDS: LIDOCAINE 5% TOPICAL PATCH TP SCH (21:12)
[2018-07-19] MEDS ORDERED: MELATONIN 5 MG TABLETS PO PRN (22:00)
[2018-07-20] MEDS: cloNIDine HCL 0.1 MG TABLET PO SCH ×3 (06:48→21:27)
[2018-07-20] MEDS: HYDROCHLOROTHIAZIDE 25 MG TABLET (FP) PO SCH (10:07)
[2018-07-20] MEDS: PRENATAL VITAMINS W/ FOLIC ACID TABLET (FP) PO SCH (10:07)
[2018-07-20] MEDS: amLODIPine BESYLATE 5 MG TABLET (FP) PO SCH (10:08)
[2018-07-20] MEDS: LIDOCAINE PATCH REMOVAL MC SCH (10:08)
[2018-07-20] MEDS: LISINOPRIL 20 MG TABLET (FP) PO SCH ×2 (10:08→21:27)
[2018-07-20] MEDS: CYCLOBENZAPRINE HCL 10 MG TABLET (FP) PO PRN (10:15)
--- NOTE | 2018-07-20 15:44 | EKG ---
Test Reason : Blood Pressure : / mmHG Vent. Rate : 047 BPM Atrial Rate : 047 BPM P-R Int : 160 ms QRS Dur : 072 ms QT Int : 548 ms P-R-T Axes : 038 -06 126 degrees QTc Int : 484 ms SINUS BRADYCARDIA SEPTAL INFARCT , AGE UNDETERMINED T WAVE ABNORMALITY, CONSIDER LATERAL ISCHEMIA ABNORMAL ECG WHEN COMPARED WITH ECG OF 19-JUL-2018 07:45, SEPTAL INFARCT IS NOW PRESENT NONSPECIFIC T WAVE ABNORMALITY HAS REPLACED INVERTED T WAVES IN ANTERIOR LEADS QT HAS SHORTENED Confirmed by EUSEBIA HERNANDEZ MD ([id number]) on 07/20/2018 3:43:45 PM Referred By: Confirmed By:EUSEBIA HERNANDEZ MD
--- NOTE | 2018-07-20 15:51 | EKG ---
Test Reason : Blood Pressure : / mmHG Vent. Rate : 058 BPM Atrial Rate : 058 BPM P-R Int : 166 ms QRS Dur : 082 ms QT Int : 570 ms P-R-T Axes : 054 004 113 degrees QTc Int : 559 ms SINUS BRADYCARDIA WITH SINUS ARRHYTHMIA T WAVE ABNORMALITY, CONSIDER LATERAL ISCHEMIA PROLONGED QT ABNORMAL ECG WHEN COMPARED WITH ECG OF 02-APR-2018 14:59, CRITERIA FOR SEPTAL INFARCT ARE NO LONGER PRESENT INVERTED T WAVES HAVE REPLACED NONSPECIFIC T WAVE ABNORMALITY IN ANTERIOR LEADS QT HAS LENGTHENED Confirmed by EUSEBIA HERNANDEZ MD ([id number]) on 07/20/2018 3:51:17 PM Referred By: Confirmed By:EUSEBIA HERNANDEZ MD
--- NOTE | 2018-07-20 17:19 | PN ---
S Progress Note Note: patient has no complaint no chest pain,no sob,no dizziness Vital Signs Temperature 97.9 F 07/20/18 07:54 Pulse Rate 58 L 07/20/18 15:38 Respiratory Rate 18 07/20/18 07:54 Blood Pressure 176/105 H 07/20/18 15:38 O2 Sat by Pulse Oximetry (%) ekg sinus bradycardia,inverted t in 1,avl,2,3,avfv4 to v6,has been there on ,qt 542/[id number] history of hypertension close monitoring
[2018-07-20] MEDS ORDERED: cloNIDine HCL 0.1 MG TABLET PO SCH (18:00)
[2018-07-20] MEDS: THIAMINE HCL 100 MG TABLET (FP) PO SCH (21:27)
[2018-07-20] MEDS: traZODone HCL 50 MG TABLET (FP) PO SCH (21:27)
[2018-07-20] MEDS: LIDOCAINE 5% TOPICAL PATCH TP SCH (21:29)
[2018-07-20] MEDS ORDERED: LIDOCAINE PATCH REMOVAL MC SCH (22:00)
[2018-07-21] MEDS: cloNIDine HCL 0.1 MG TABLET PO SCH ×3 (06:47→21:28)
[2018-07-21] MEDS: PRENATAL VITAMINS W/ FOLIC ACID TABLET (FP) PO SCH (09:25)
[2018-07-21] MEDS: LIDOCAINE PATCH REMOVAL MC SCH (09:26)
[2018-07-21] MEDS: amLODIPine BESYLATE 5 MG TABLET (FP) PO SCH (09:26)
[2018-07-21] MEDS: HYDROCHLOROTHIAZIDE 25 MG TABLET (FP) PO SCH (09:26)
[2018-07-21] MEDS: LISINOPRIL 20 MG TABLET (FP) PO SCH ×2 (09:26→21:28)
[2018-07-21] MEDS: THIAMINE HCL 100 MG TABLET (FP) PO SCH (21:28)
[2018-07-21] MEDS: traZODone HCL 50 MG TABLET (FP) PO SCH (21:28)
[2018-07-21] MEDS: LIDOCAINE 5% TOPICAL PATCH TP SCH (21:30)
[2018-07-22] MEDS: cloNIDine HCL 0.1 MG TABLET PO SCH ×2 (07:10→13:07)
[2018-07-22] MEDS: CYCLOBENZAPRINE HCL 10 MG TABLET (FP) PO PRN ×2 (07:12→21:42)
[2018-07-22] MEDS: amLODIPine BESYLATE 5 MG TABLET (FP) PO SCH (09:07)
[2018-07-22] MEDS: PRENATAL VITAMINS W/ FOLIC ACID TABLET (FP) PO SCH (09:07)
[2018-07-22] MEDS: HYDROCHLOROTHIAZIDE 25 MG TABLET (FP) PO SCH (09:07)
[2018-07-22] MEDS: LISINOPRIL 20 MG TABLET (FP) PO SCH ×2 (09:07→21:42)
[2018-07-22] MEDS: LIDOCAINE PATCH REMOVAL MC SCH (09:52)
[2018-07-22 13:07] VITALS: PULSE 76
[2018-07-22] MEDS ORDERED: COLLOIDAL OATMEAL 1 BAR EACH TP PRN (15:09)
[2018-07-22] MEDS: THIAMINE HCL 100 MG TABLET (FP) PO SCH (21:41)
[2018-07-22] MEDS: traZODone HCL 50 MG TABLET (FP) PO SCH (21:42)
[2018-07-22] MEDS: LIDOCAINE 5% TOPICAL PATCH TP SCH (21:43)
[2018-07-23 07:58] VITALS: TEMP 98.2
[2018-07-23 07:59] VITALS: BP 189/143
--- NOTE | 2018-07-23 08:09 | PN ---
[facility] Progress Note Note: ASKED TO SEE PATIENT FOR ELEVATED B/P 189/143 P 73 Vital Signs (72 hours) 07/20/18 07/20/18 07/20/18 10:00 14:05 15:38 Temperature Pulse Rate 60 113 H 58 L Respiratory Rate Blood Pressure 163/100 177/129 H 176/105 H 07/20/18 07/21/18 07/21/18 21:40 00:30 03:30 Temperature Pulse Rate 58 L Respiratory 18 18 Rate Blood Pressure 154/93 07/21/18 07/21/18 07/21/18 07:10 09:37 13:48 Temperature 98.2 F Pulse Rate 75 70 83 Respiratory 18 Rate Blood Pressure 144/97 149/98 147/101 H 07/21/18 07/22/18 07/22/18 21:40 00:30 00:47 Temperature Pulse Rate 65 54 L Respiratory 16 16 Rate Blood Pressure 162/120 H 171/119 H 07/22/18 07/22/18 07/22/18 00:48 07:31 09:07 Temperature 98.0 F Pulse Rate 50 L 73 80 Respiratory 16 18 Rate Blood Pressure 159/100 150/102 H 133/83 07/22/18 07/22/18 07/23/18 13:07 22:00 00:30 Temperature Pulse Rate 76 76 Respiratory 16 Rate Blood Pressure 134/97 141/94 07/23/18 07/23/18 07/23/18 03:30 07:08 07:58 Temperature 98.2 F 98.2 F Pulse Rate 76 76 Respiratory 16 18 18 Rate Blood Pressure 196/138 H 189/143 H HX/O HTN ASYMPTOMATIC TRANSFER TO [facility] FOR EVAL REPORT GIVEN TO VANDANA SEAY
[2018-07-23] MEDS: LIDOCAINE PATCH REMOVAL MC SCH (09:54)
[2018-07-23] MEDS: HYDROCHLOROTHIAZIDE 25 MG TABLET (FP) PO SCH (09:54)
[2018-07-23] MEDS: amLODIPine BESYLATE 5 MG TABLET (FP) PO SCH (09:54)
[2018-07-23] MEDS: LISINOPRIL 20 MG TABLET (FP) PO SCH (09:55)
[2018-07-23] MEDS: PRENATAL VITAMINS W/ FOLIC ACID TABLET (FP) PO SCH (09:55)
--- NOTE | 2018-07-23 15:25 | PN ---
[facility] Progress Note Note: DR YAZAN BABCOCK AT [facility] ED CALLED TO VERIFY PT'S HYPERTENSIVE MEDS. PT WAS SENT OUT EARLIER THIS MORNING(SEE PREVIOUS SHIFT NOTE). HE QUESTIONED WHY PT'S CLONIDINE WAS DISCONTINUED. THIS HIP HOP DANCER IS UNAWARE OF THE REASON BUT PT HAD BEEN TAKING IT IN ADDITION TO HCTZ 25 MG, LISINOPRIL 20 MG PO BID AND AMLODIPINE 5 MG PO DAILY. THIS HIP HOP DANCER CALLED [facility] AND SPOKE TO WAYNE THE PHARMACIST WHO CONFIRMED THE ORDER JUST FELL OFF THE SYSTEM AND WAS NOT D/C'D PURPOSEFULLY BY ANY PROVIDER PER RECORD. THIS HIP HOP DANCER PLACED A FOLLOW UP CALL TO DR BABCOCK AT [facility] AND INFORMED HIM SAME. MEANWHILE PT IS AT [facility]. END NOTE.
== END 2018-07-23 22:06 | disposition short-term general hospital (02) | DRG 772 ==
LOC: YASAS 16:02 → Y3E 18:23
PROVIDERS: ADMIT Psychiatry & Neurology Psychiatry; ATTEND Psychiatry & Neurology Psychiatry
PROC: HZ42ZZZ Group Counseling for Substance Abuse Treatment, Cognitive-Behavioral (ICD-10-PCS; principal; 2018-07-18)
DX: F11.20 Opioid dependence, uncomplicated (principal); F14.20 Cocaine dependence, uncomplicated; F10.20 Alcohol dependence, uncomplicated; F19.282 Other psychoactive substance dependence with psychoactive substance-induced sleep disorder; R00.1 Bradycardia, unspecified; I10 Essential (primary) hypertension; M54.5 Low back pain; G89.29 Other chronic pain; M62.830 Muscle spasm of back; J45.909 Unspecified asthma, uncomplicated; Z87.891 Personal history of nicotine dependence; Z59.0 Homelessness
CPT/HCPCS: 36415; 80053; 81003; 81015; 85027; 86593; 87389; 93005; 93010; J0735

== ENCOUNTER 2018-07-23 08:38 | Observation (INO) | payer OTHER ==
[2018-07-23 09:07] VITALS: BMI 24.5
[2018-07-23] MEDS ORDERED: LISINOPRIL 20 MG TABLET (FP) PO ONE (09:45)
[2018-07-23] MEDS ORDERED: LISINOPRIL 20 MG TABLET (FP) ONE (09:57)
--- NOTE | 2018-07-23 11:01 | PDOC ---
History of Present Illness - General Chief Complaint: Blood Pressure Problem Stated Complaint: HYPERTENSION Time Seen by Provider: 07/23/18 09:07 History Source: Patient Exam Limitations: No Limitations - History of Present Illness Initial Comments: 07/23/18 10:51 47 yo female pmh of HTN, alcohol, heroin and cocaine abuse presents from [facility] for elevated blood pressure today without any current complaints. Pt states she has been taking her BP medications for the last 1.5 weeks but Past History - Past Medical History Allergies/Adverse Reactions: Allergies Allergy/AdvReac Type Severity Reaction Status Date / Time No Known Allergies Allergy Verified 07/23/18 09:06 Home Medications: Ambulatory Orders Lisinopril 20 mg PO BID 03/28/18 Albuterol Sulfate Inhaler - [Ventolin HFA Inhaler -] 2 puff IH Q4H PRN #1 inhaler 04/17/18 Amlodipine Besylate [Norvasc -] 5 mg PO DAILY #15 tablet 04/17/18 Hydrochlorothiazide [Hctz -] 50 mg PO DAILY #15 tablet 04/17/18 cloNIDine HCL [Catapres -] 0.2 mg PO BID@0600,1800 #30 tablet 04/17/18 hydrALAZINE HCL [Apresoline -] 50 mg PO Q6HPO 15 Days #90 tablet MDD 4 04/17/18 traZODone HCL [Desyrel -] 50 mg PO HS #30 tablet 04/17/18 Buprenorphine HCl/Naloxone HCl [Suboxone 4 mg-1 mg Sl Film] 1 each SL BID 7 Days #14 film MDD 8mg 04/18/18 Anemia: No Asthma: Yes (ON MDI) Cancer: No Cardiac Disorders: No CVA: No COPD: No CHF: No Dementia: No Diabetes: No GI Disorders: No Disorders: No HTN: Yes (ON MEDS.) Hypercholesterolemia: No Kidney Stones: No Liver Disease: No Seizures: No Thyroid Disease: No - Surgical History Abdominal Surgery: No Appendectomy: No Cardiac Surgery: No Cholecystectomy: No Lung Surgery: No Neurologic Surgery: No Orthopedic Surgery: No - Reproductive History PID: No - Suicide/Smoking/Psychosocial Hx Smoking History: Never smoked Have you smoked in the past 12 months: No Information on smoking cessation initiated: No 'Breaking Loose' booklet given: 07/18/18 Hx Alcohol Use: No Drug/Substance Use Hx: No Substance Use Type: Alcohol, Cocaine, Heroin Hx Substance Use Treatment: Yes (reports 2 months of abstinence is the longest) *Physical Exam - Vital Signs Last Vital Signs Temp Pulse Resp BP Pulse Ox 98.5 F 83 16 166/119 H 100 07/23/18 08:38 07/23/18 08:38 07/23/18 08:38 07/23/18 08:38 07/23/18 08:38 Moderate Sedation - Procedure Monitoring Vital Signs: Procedure Monitoring Vital Signs Temperature 98.5 F 07/23/18 08:38 Pulse Rate 83 07/23/18 08:38 Respiratory Rate 16 07/23/18 08:38 Blood Pressure 166/119 H 07/23/18 08:38 O2 Sat by Pulse Oximetry (%) 100 07/23/18 08:38 ED Treatment Course - LABORATORY CBC & Chemistry Diagram: 07/23/18 11:07 07/23/18 11:07 - Medications Given in the ED: ED Medications Discontinued Medications Generic Name Dose Route Start Last Admin Trade Name Freq PRN Reason Stop Dose Admin Lisinopril 20 mg 07/23/18 09:45 07/23/18 10:01 Prinivil PO 07/23/18 09:46 20 mg ONCE ONE Administration Medical Decision Making - Medical Decision Making 07/23/18 14:40 roxi burkett *DC/Admit/Observation/Transfer Diagnosis at time of Disposition: Elevated blood pressure reading, Hypertensive urgency - Discharge Dispostion Condition at time of disposition: Stable Decision to Admit order: Yes - Referrals - Patient Instructions - Post Discharge Activity
[2018-07-23] MEDS ORDERED: amLODIPine BESYLATE 5 MG TABLET (FP) PO ONE ×2 (11:05→17:30)
[2018-07-23] MEDS ORDERED: HYDROCHLOROTHIAZIDE 25 MG TABLET (FP) PO ONE (11:06)
[2018-07-23] MEDS ORDERED: amLODIPine BESYLATE 5 MG TABLET (FP) ONE ×2 (11:13→18:27)
[2018-07-23] MEDS ORDERED: HYDROCHLOROTHIAZIDE 25 MG TABLET (FP) ONE (11:14)
[2018-07-23 13:56] LABS: BASO % 0.7 % (0-2.0); EOS % 0.4 % (0-4.5); HEMATOCRIT 45.1 % (32.4-45.2); LYMPH % 28.6 % (8-40); MCH 26.6 pg (25.7-33.7); MCHC 33.3 g/dl (32.0-36.0); MEAN CELL VOLUME 79.9 fl (80-96); MEAN PLT VOLUME 8.7 fl (7.5-11.1); MONO % 7.2 % (3.8-10.2); NEUT % 63.1 % (42.8-82.8); PLATELET COUNT 293 K/MM3 (134-434); RBC 5.65 M/mm3 (3.60-5.2); RDW 15.2 % (11.6-15.6); WHITE BLOOD COUNT 7.8 K/mm3 (4.0-10.0)
[2018-07-23] MEDS ORDERED: hydrALAZINE HCL 50 MG TABLET (FP) PO ONE (14:16)
[2018-07-23 14:29] LABS: ALBUMIN 3.8 g/dl (3.4-5.0); ALK PHOS 76 U/L (45-117); ANION GAP 8 MMOL/L (8-16); BILIRUBIN,TOTAL 0.4 mg/dL (0.2-1); BLOOD UREA NITROGEN 28 mg/dL (7-18); CALCIUM 9.4 mg/dL (8.5-10.1); CHLORIDE 99 mmol/L (98-107); CO2 30 mmol/L (21-32); CREATININE 1.7 mg/dL (0.55-1.3); GLUCOSE,RANDOM 80 mg/dL (74-106); POTASSIUM 4.1 mmol/L (3.5-5.1); SGOT/AST 26 U/L (15-37); SGPT/ALT 31 U/L (13-61); SODIUM 137 mmol/L (136-145); TOT PROT 8.6 g/dl (6.4-8.2)
[2018-07-23] MEDS ORDERED: cloNIDine HCL 0.1 MG TABLET PO ONE (14:55)
[2018-07-23] MEDS ORDERED: cloNIDine HCL 0.1 MG TABLET ONE (14:56)
[2018-07-23] MEDS ORDERED: CYCLOBENZAPRINE HCL 10 MG TABLET (FP) ONE (14:56)
[2018-07-23] MEDS ORDERED: CYCLOBENZAPRINE HCL 10 MG TABLET (FP) PO ONE (15:00)
[2018-07-23] MEDS ORDERED: CYCLOBENZAPRINE HCL 5 MG TABLET PO SCH (15:00)
--- NOTE | 2018-07-23 16:08 | PDOC ---
Attending Attestation - Resident Resident Name: Pal Sheehan - ED Attending Attestation I have performed the following: I have examined & evaluated the patient, The case was reviewed & discussed with the resident, I agree w/resident's findings & plan, Exceptions are as noted - HPI HPI: 07/23/18 16:11 The patient is a 47-year-old female with a past medical history significant for asthma, heroin abuse, HTN presents to the emergency department with elevated BP. The patient reports she was sent to the ER for evaluation for elevated BP noted earlier today at [facility], where she is seeking rehab for Heroin abuse. Per [facility] records the patient had a recorded BP of 189/143. Denies taking her HTN medication today. Pt denies any and all symptoms of headache, dizziness, blurry vision, neck pain, focal weakness or numbness, CP, SOB, abd pain, N/V/D, urinary sxs, LE edema, rashes. Allergies: NKDA Social history: Hx of heroin use (inhalation) and cocaine use Former smoker. PCP: None reported. Phone Calls: Call placed to [address] inpatient rehabilitation at 10:57 am, Case discussed with Patients Nurse John Menjivar. She states that pt's BP was elevated at 8:30AM, but she was not due for her amlodipine 5mg, HCTZ 25mg, and lisinopril 20mg until 10AM. Pt was on clonidine up until yesterday but the order , nurse is not sure why. - Physicial Exam PE: 07/23/18 16:11 GENERAL: Awake, alert, and fully oriented, in no acute distress HEAD: No signs of trauma EYES: PERRLA, EOMI, sclera anicteric, conjunctiva clear ENT: Auricles normal inspection, hearing grossly normal, nares patent, oropharynx clear without exudates. Moist mucosa NECK: Normal ROM, supple, no lymphadenopathy, JVD, or masses LUNGS: Breath sounds equal, clear to auscultation bilaterally. No wheezes, and no crackles HEART: Regular rate and rhythm, normal S1 and S2, no murmurs, rubs or gallops ABDOMEN: Soft, nontender, normoactive bowel sounds. No guarding, no rebound. No masses EXTREMITIES: Normal range of motion, no edema. No clubbing or cyanosis. No cords, erythema, or tenderness NEUROLOGICAL: Normal speech, cranial nerves intact, negative pronator drift, 5/ 5 strength in all 4 extremities, normal sensation to light touch in all 4 extremities, normal cerebellar exam, normal gait, normal reflexes and tone SKIN: Warm, Dry, normal turgor, no rashes or lesions noted. - Medical Decision Making 07/23/18 16:12 47yo F with poorly controlled HTN presents to the ED with uncontrolled HTN. EKG unchanged. Labs unchanged with no new evidence of end organ damage. Pt asymptomatic, all consistent with hypertensive urgency. Despite medications pt has been getting as outpt - amlodipine 5mg, HCTZ 25mg, lisinopril 20mg, clondidine 0.2mg, BP is still 181/128. Due to LOS, pt to be admitted to obs for further BP control. Case discussed with Dr. Rodney who accepts obs admission. Case discussed in detail with admitting physician including history, physical exam and ancillary studies. Admitting physician has assumed care for the patient, will follow all pending diagnostics and will complete the evaluation and treatment.
--- NOTE | 2018-07-23 16:27 | PN ---
Teaching Attending Note Name of Resident: Jean Pierre Phelan ATTENDING PHYSICIAN STATEMENT I saw and evaluated the patient. I reviewed the resident's note and discussed the case with the resident. I agree with the resident's findings and plan as documented. SUBJECTIVE: Patient is a 47 yo F with a history of polysubstance abuse (heroine, alcohol), asthma was sent to the ED from [facility] detox rehab because of elevated BP of 189/143. As per patient , she did not receive the medication today. OBJECTIVE: Initial Vital Signs Temp Pulse Resp BP Pulse Ox 98.5 F 83 16 166/119 H 100 07/23/18 08:38 07/23/18 08:38 07/23/18 08:38 07/23/18 08:38 07/23/18 08:38 Vital Signs Temperature 98.5 F 07/23/18 08:38 Pulse Rate 79 07/23/18 10:49 Respiratory Rate 16 07/23/18 10:49 Blood Pressure 185/145 H 07/23/18 10:49 O2 Sat by Pulse Oximetry (%) 99 07/23/18 10:49 GENERAL: A/o x3 HEAD: Normal with no signs of trauma. EYES: Pupils equal, round and reactive to light, extraocular movements intact, sclera anicteric EARS, NOSE, THROAT: oropharynx clear without exudates. Moist mucous membranes. NECK: Normal range of motion, supple without lymphadenopathy, JVD, or masses. LUNGS: Breath sounds equal, clear to auscultation bilaterally. HEART: Regular rate and rhythm, normal S1 and S2 without murmur, rub or gallop. ABDOMEN: Soft, nontender, not distended, normoactive bowel sounds, no guarding, no rebound, no masses. EXTREMITIES: 2+ pulses, warm, well-perfused. No calf tenderness. No peripheral edema. NEUROLOGICAL: Cranial nerves II-XII intact. Normal speech. Normal gait. PSYCHIATRIC: Cooperative. Good eye contact. Appropriate mood and affect. SKIN: Warm, dry, normal turgor, no rashes or lesions noted, normal capillary refill. CBCD WBC 7.8 K/mm3 (4.0-10.0) 07/23/18 11:07 RBC 5.65 M/mm3 (3.60-5.2) H 07/23/18 11:07 Hgb 15.0 GM/dL (10.7-15.3) 07/23/18 11:07 Hct 45.1 % (32.4-45.2) D 07/23/18 11:07 MCV 79.9 fl (80-96) L 07/23/18 11:07 MCHC 33.3 g/dl (32.0-36.0) 07/23/18 11:07 RDW 15.2 % (11.6-15.6) 07/23/18 11:07 Plt Count 293 K/MM3 (134-434) D 07/23/18 11:07 MPV 8.7 fl (7.5-11.1) 07/23/18 11:07 CMP Sodium 137 mmol/L (136-145) 07/23/18 11:07 Potassium 4.1 mmol/L (3.5-5.1) 07/23/18 11:07 Chloride 99 mmol/L (98-107) 07/23/18 11:07 Carbon Dioxide 30 mmol/L (21-32) 07/23/18 11:07 Anion Gap 8 MMOL/L (8-16) 07/23/18 11:07 BUN 28 mg/dL (7-18) H 07/23/18 11:07 Creatinine 1.7 mg/dL (0.55-1.3) H 07/23/18 11:07 Creat Clearance w eGFR 32.08 (>60) 07/23/18 11:07 Random Glucose 80 mg/dL (74-106) 07/23/18 11:07 Calcium 9.4 mg/dL (8.5-10.1) 07/23/18 11:07 Total Bilirubin 0.4 mg/dL (0.2-1) 07/23/18 11:07 AST 26 U/L (15-37) 07/23/18 11:07 ALT 31 U/L (13-61) 07/23/18 11:07 Alkaline Phosphatase 76 U/L (45-117) 07/23/18 11:07 Total Protein 8.6 g/dl (6.4-8.2) H 07/23/18 11:07 Albumin 3.8 g/dl (3.4-5.0) 07/23/18 11:07 CARDIAC ENZYMES Creatine Kinase 95 IU/L (26-192) 07/23/18 11:07 Troponin I < 0.02 ng/ml (0.00-0.05) 07/23/18 11:07 Home Medications Medication Instructions Recorded Lisinopril 20 mg PO BID 03/28/18 Albuterol Sulfate Inhaler - 2 puff IH Q4H PRN #1 inhaler 04/17/18 [Ventolin HFA Inhaler -] Amlodipine Besylate [Norvasc -] 5 mg PO DAILY #15 tablet 04/17/18 Hydrochlorothiazide [Hctz -] 50 mg PO DAILY #15 tablet 04/17/18 cloNIDine HCL [Catapres -] 0.2 mg PO BID@0600,1800 #30 tablet 04/17/18 hydrALAZINE HCL [Apresoline -] 50 mg PO Q6HPO 15 Days #90 tablet 04/17/18 MDD 4 traZODone HCL [Desyrel -] 50 mg PO HS #30 tablet 04/17/18 Buprenorphine HCl/Naloxone HCl 1 each SL BID 7 Days #14 film MDD 04/18/18 [Suboxone 4 mg-1 mg Sl Film] 8mg ASSESSMENT AND PLAN: 47 yo F with a history of polysubstance abuse (heroine, alcohol), asthma was sent to the ED from [facility] because of BP of 189/143. #HTN emergency continue home meds continue , will increase the dose of amlodipine 5mg, HCTZ 25mg, lisinopril 20mg, clonidine 0.2mg in ED #KEL hold lisinopril #Hx of Polysubstance abuse no signs of withdrawal at this time, patient is in detox rehab. DVT ppx: heparin s once bp is controlled. -EAB
[2018-07-23] MEDS ORDERED: SODIUM CHLORIDE 1,000 ML IV SCH (17:30)
--- NOTE | 2018-07-23 17:43 | HP ---
CHIEF COMPLAINT: HTN PCP: none HISTORY OF PRESENT ILLNESS: Patient is a 47 yo F with a history of polysubstance abuse (heroine, alcohol), asthma was sent to the ED from [facility] because of BP of 189/143. Patient is undergoing rehab for heroine abuse. Her BP was 189/143 at [facility]. Patient says its been at least 1 week since she last took her blood pressure medications. Patient offers no complaints. She denies headache, nausea, vomiting, chest pain, palpitations, fever, sob, chills. ER course was notable for: (1) BP 185/45 (2) Given amlodipine 5mg, HCTZ 25mg, lisinopril 20mg, clondidine 0.2mg in ED Recent Travel: n/a PAST MEDICAL HISTORY: per HPI Social History: Smoking:denies Alcohol:denies Drugs: says she quit 3 weeks ago. Heroine Family History: Allergies No Known Allergies Allergy (Verified 07/23/18 09:06) HOME MEDICATIONS: Home Medications Medication Instructions Recorded Lisinopril 20 mg PO BID 03/28/18 Albuterol Sulfate Inhaler - 2 puff IH Q4H PRN #1 inhaler 04/17/18 [Ventolin HFA Inhaler -] Amlodipine Besylate [Norvasc -] 5 mg PO DAILY #15 tablet 04/17/18 Hydrochlorothiazide [Hctz -] 50 mg PO DAILY #15 tablet 04/17/18 cloNIDine HCL [Catapres -] 0.2 mg PO BID@0600,1800 #30 tablet 04/17/18 hydrALAZINE HCL [Apresoline -] 50 mg PO Q6HPO 15 Days #90 tablet 04/17/18 MDD 4 traZODone HCL [Desyrel -] 50 mg PO HS #30 tablet 04/17/18 Buprenorphine HCl/Naloxone HCl 1 each SL BID 7 Days #14 film MDD 04/18/18 [Suboxone 4 mg-1 mg Sl Film] 8mg REVIEW OF SYSTEMS CONSTITUTIONAL: Absent: fever, chills, diaphoresis, generalized weakness, malaise, loss of appetite, weight change HEENT: Absent: rhinorrhea, nasal congestion, throat pain, throat swelling, difficulty swallowing, mouth swelling, ear pain, eye pain, visual changes CARDIOVASCULAR: Absent: chest pain, syncope, palpitations, irregular heart rate, lightheadedness , peripheral edema RESPIRATORY: Absent: cough, shortness of breath, dyspnea with exertion, orthopnea, wheezing, stridor, hemoptysis GASTROINTESTINAL: Absent: abdominal pain, abdominal distension, nausea, vomiting, diarrhea, constipation, melena, hematochezia GENITOURINARY: Absent: dysuria, frequency, urgency, hesitancy, hematuria, flank pain, genital pain MUSCULOSKELETAL: Absent: myalgia, arthralgia, joint swelling, back pain, neck pain SKIN: Absent: rash, itching, pallor HEMATOLOGIC/IMMUNOLOGIC: Absent: easy bleeding, easy bruising, lymphadenopathy, frequent infections ENDOCRINE: Absent: unexplained weight gain, unexplained weight loss, heat intolerance, cold intolerance NEUROLOGIC: Absent: headache, focal weakness or paresthesias, dizziness, unsteady gait, seizure, mental status changes, bladder or bowel incontinence PSYCHIATRIC: Absent: anxiety, depression, suicidal or homicidal ideation, hallucinations. PHYSICAL EXAMINATION Vital Signs - 24 hr 07/23/18 07/23/18 08:38 10:49 Temperature 98.5 F Pulse Rate 83 Pulse Rate [ 79 Left] Respiratory 16 16 Rate Blood Pressure 166/119 H Blood Pressure 185/145 H [Arm] O2 Sat by Pulse 100 99 Oximetry (%) GENERAL: A/o x3 HEAD: Normal with no signs of trauma. EYES: Pupils equal, round and reactive to light, extraocular movements intact, sclera anicteric EARS, NOSE, THROAT: oropharynx clear without exudates. Moist mucous membranes. NECK: Normal range of motion, supple without lymphadenopathy, JVD, or masses. LUNGS: Breath sounds equal, clear to auscultation bilaterally. HEART: Regular rate and rhythm, normal S1 and S2 without murmur, rub or gallop. ABDOMEN: Soft, nontender, not distended, normoactive bowel sounds, no guarding, no rebound, no masses. LOWER EXTREMITIES: 2+ pulses, warm, well-perfused. No calf tenderness. No peripheral edema. NEUROLOGICAL: Cranial nerves II-XII intact. Normal speech. Normal gait. PSYCHIATRIC: Cooperative. Good eye contact. Appropriate mood and affect. SKIN: Warm, dry, normal turgor, no rashes or lesions noted, normal capillary refill. Laboratory Results - last 24 hr 07/23/18 07/23/18 07/23/18 11:07 11:07 11:07 WBC 7.8 RBC 5.65 H Hgb 15.0 Hct 45.1 D MCV 79.9 L MCH 26.6 MCHC 33.3 RDW 15.2 Plt Count 293 D MPV 8.7 Absolute Neuts (auto) 4.9 Neutrophils % 63.1 D Lymphocytes % 28.6 Monocytes % 7.2 Eosinophils % 0.4 Basophils % 0.7 Nucleated RBC % 0 Sodium 137 Potassium 4.1 Chloride 99 Carbon Dioxide 30 Anion Gap 8 BUN 28 H Creatinine 1.7 H Creat Clearance w eGFR 32.08 Random Glucose 80 Calcium 9.4 Total Bilirubin 0.4 AST 26 ALT 31 Alkaline Phosphatase 76 Creatine Kinase 95 Troponin I < 0.02 Total Protein 8.6 H Albumin 3.8 Serum , Qual Negative ASSESSMENT/PLAN: 47 yo F with a history of polysubstance abuse (heroine, alcohol), asthma was sent to the ED from [facility] because of BP of 189/143. #HTN Urgency -likely due to noncompliance -asymptomatic -Given amlodipine 5mg, HCTZ 25mg, lisinopril 20mg, clonidine 0.2mg in ED -monitor -obs -EKG NSR -1st trop neg, fu 2nd set -ECHO in AM -cont. Home meds -monitor #KEL -likely prerenal -avoid nephrotoxins -hold lisinopril -iv fluids #Hx of Polysubstance abuse -no signs of withdrawal at this time -Detox consulted #FEN -IV fluids -monitor -sodium restricted #DVT ppx -EAB Dispo: Obs
[2018-07-23] MEDS ORDERED: hydrALAZINE HCL 25 MG TABLET (FP) ONE (18:28)
[2018-07-23] MEDS: hydrALAZINE HCL 25 MG TABLET (FP) PO SCH (18:36)
[2018-07-23] MEDS ORDERED: hydrALAZINE HCL 25 MG TABLET (FP) PO ONE (20:15)
[2018-07-23] MEDS: ACETAMINOPHEN 325 MG TABLET (FP) PO PRN (20:49)
[2018-07-23] MEDS ORDERED: traZODone HCL 50 MG TABLET (FP) PO SCH (22:00)
[2018-07-24] MEDS: hydrALAZINE HCL 25 MG TABLET (FP) PO SCH ×3 (00:50→12:18)
[2018-07-24] MEDS: ACETAMINOPHEN 325 MG TABLET (FP) PO PRN ×2 (03:28→09:33)
[2018-07-24] MEDS ORDERED: traZODone HCL 50 MG TABLET (FP) PO ONE (04:06)
[2018-07-24] MEDS ORDERED: MELATONIN 5 MG TABLETS PO PRN (06:42)
[2018-07-24 07:37] LABS: BASO % 0.6 % (0-2.0); EOS % 1.1 % (0-4.5); HEMATOCRIT 43.4 % (32.4-45.2); HEMOGLOBIN 13.7 GM/dL (10.7-15.3); LYMPH % 34.7 % (8-40); MCH 25.7 pg (25.7-33.7); MCHC 31.7 g/dl (32.0-36.0); MEAN CELL VOLUME 81.1 fl (80-96); MEAN PLT VOLUME 8.7 fl (7.5-11.1); MONO % 9.3 % (3.8-10.2); NEUT % 54.3 % (42.8-82.8); PLATELET COUNT 263 K/MM3 (134-434); RBC 5.35 M/mm3 (3.60-5.2); RDW 14.9 % (11.6-15.6); WHITE BLOOD COUNT 8.3 K/mm3 (4.0-10.0)
[2018-07-24 08:36] LABS: ALBUMIN 3.6 g/dl (3.4-5.0); ALK PHOS 73 U/L (45-117); ANION GAP 8 MMOL/L (8-16); BILIRUBIN,TOTAL 0.4 mg/dL (0.2-1); BLOOD UREA NITROGEN 27 mg/dL (7-18); CALCIUM 8.8 mg/dL (8.5-10.1); CHLORIDE 104 mmol/L (98-107); CO2 26 mmol/L (21-32); CREATININE 1.6 mg/dL (0.55-1.3); GLUCOSE,RANDOM 78 mg/dL (74-106); MAGNESIUM 2.1 mg/dL (1.8-2.4); SGOT/AST 21 U/L (15-37); SGPT/ALT 26 U/L (13-61); SODIUM 137 mmol/L (136-145); TOT PROT 7.6 g/dl (6.4-8.2)
[2018-07-24 08:44] LABS: INR 0.96 (0.83-1.09); PROTHROMBIN TIME (PATIENT) 11.3 SEC (9.7-13.0)
[2018-07-24] MEDS ORDERED: HYDROCHLOROTHIAZIDE 25 MG TABLET (FP) PO SCH ×2 (10:00)
[2018-07-24] MEDS ORDERED: amLODIPine BESYLATE 10 MG TABLET (FP) PO SCH (10:00)
[2018-07-24] MEDS ORDERED: LISINOPRIL 20 MG TABLET (FP) PO SCH (10:00)
[2018-07-24] MEDS ORDERED: amLODIPine BESYLATE 5 MG TABLET (FP) PO SCH (10:00)
[2018-07-24] MEDS ORDERED: cloNIDine HCL 0.1 MG TABLET PO ONE (12:00)
[2018-07-24 14:25] VITALS: BP 120/87; PULSE 78; TEMP 98.1
--- NOTE | 2018-07-24 15:32 | PN ---
Teaching Attending Note Name of Resident: Jennie Billingsley ATTENDING PHYSICIAN STATEMENT I saw and evaluated the patient. I reviewed the resident's note and discussed the case with the resident. I agree with the resident's findings and plan as documented. SUBJECTIVE: Patient complains of chronic back pain. OBJECTIVE: Vital Signs Period Temp Pulse Resp BP Sys/Cruz Pulse Ox Last 24 Hr 97.8 F-98.3 F 71-107 16-20 118-175/83-103 99-99 HEART: S1S2, RRR LUNGS: Clear ABDOMEN: Soft, non-tender, non-distended, normal BS EXTREMITIES: No edema Laboratory Results - last 24 hr 07/23/18 07/24/18 07/24/18 21:35 07:00 07:00 WBC 8.3 RBC 5.35 H Hgb 13.7 Hct 43.4 MCV 81.1 MCH 25.7 MCHC 31.7 L RDW 14.9 Plt Count 263 MPV 8.7 Absolute Neuts (auto) 4.5 Neutrophils % 54.3 Lymphocytes % 34.7 D Monocytes % 9.3 Eosinophils % 1.1 D Basophils % 0.6 Nucleated RBC % 0 PT with INR 11.30 INR 0.96 Sodium Potassium Chloride Carbon Dioxide Anion Gap BUN Creatinine Creat Clearance w eGFR Random Glucose Hemoglobin A1c % Calcium Phosphorus Magnesium Total Bilirubin AST ALT Alkaline Phosphatase Troponin I < 0.02 Total Protein Albumin TSH 07/24/18 07/24/18 07:00 07:00 WBC RBC Hgb Hct MCV MCH MCHC RDW Plt Count MPV Absolute Neuts (auto) Neutrophils % Lymphocytes % Monocytes % Eosinophils % Basophils % Nucleated RBC % PT with INR INR Sodium 137 Potassium 4.0 Chloride 104 Carbon Dioxide 26 Anion Gap 8 BUN 27 H Creatinine 1.6 H Creat Clearance w eGFR 34.40 Random Glucose 78 Hemoglobin A1c % 5.9 Calcium 8.8 Phosphorus 4.0 Magnesium 2.1 Total Bilirubin 0.4 AST 21 ALT 26 Alkaline Phosphatase 73 Troponin I Total Protein 7.6 Albumin 3.6 TSH 1.18 ASSESSMENT AND PLAN: This is a 47 year old woman with a history of substance abuse, asthma was sent to the ED from [facility] for uncontrolled HTN. 1. Hypertensive urgency - BP is better - Discharge on Norvasc, HCTZ, lisinopril, Clonidine 2. Stage 3 CKD - Creatinine stable 3. Asthma - Stable 4. Chronic low back pain 5. Opioid dependence - Discharge to [facility] for rehab
--- NOTE | 2018-07-24 16:53 | EKG ---
Test Reason : Blood Pressure : / mmHG Vent. Rate : 063 BPM Atrial Rate : 063 BPM P-R Int : 154 ms QRS Dur : 076 ms QT Int : 456 ms P-R-T Axes : 031 -20 099 degrees QTc Int : 466 ms NORMAL SINUS RHYTHM T WAVE ABNORMALITY, CONSIDER LATERAL ISCHEMIA PROLONGED QT ABNORMAL ECG WHEN COMPARED WITH ECG OF 20-JUL-2018 07:38, NONSPECIFIC T WAVE ABNORMALITY NO LONGER EVIDENT IN INFERIOR LEADS NONSPECIFIC T WAVE ABNORMALITY NO LONGER EVIDENT IN ANTERIOR LEADS Confirmed by EUSEBIA HERNANDEZ MD ([id number]) on 07/24/2018 4:53:05 PM Referred By: Confirmed By:EUSEBIA HERNANDEZ MD
[2018-07-24] MEDS ORDERED: cloNIDine HCL 0.1 MG TABLET PO SCH (18:00)
--- NOTE | 2018-07-24 20:06 | DS ---
Physical Exam: SUBJECTIVE: Patient seen and examined at bedside. No acute events overnight. OBJECTIVE: Vital Signs Period Temp Pulse Resp BP Sys/Cruz Pulse Ox Last 24 Hr 97.8 F-98.3 F 73-107 16-20 118-156/83-103 99-99 PHYSICAL EXAM GENERAL: A/o x3 HEAD: Normal with no signs of trauma. EYES: Pupils equal, round and reactive to light, extraocular movements intact, sclera anicteric EARS, NOSE, THROAT: oropharynx clear without exudates. Moist mucous membranes. NECK: Normal range of motion, supple without lymphadenopathy, JVD, or masses. LUNGS: Breath sounds equal, clear to auscultation bilaterally. HEART: Regular rate and rhythm, normal S1 and S2 without murmur, rub or gallop. ABDOMEN: Soft, nontender, not distended, normoactive bowel sounds, no guarding, no rebound, no masses. LOWER EXTREMITIES: 2+ pulses, warm, well-perfused. No calf tenderness. No peripheral edema. NEUROLOGICAL: Cranial nerves II-XII intact. Normal speech. Normal gait. PSYCHIATRIC: Cooperative. Good eye contact. Appropriate mood and affect. SKIN: Warm, dry, normal turgor, no rashes or lesions noted, normal capillary refill. PSYCH: Normal mood, normal affect. SKIN: Warm, dry, normal turgor, no rashes or lesions noted. LABS Laboratory Results - last 24 hr 07/23/18 07/24/18 07/24/18 21:35 07:00 07:00 WBC 8.3 RBC 5.35 H Hgb 13.7 Hct 43.4 MCV 81.1 MCH 25.7 MCHC 31.7 L RDW 14.9 Plt Count 263 MPV 8.7 Absolute Neuts (auto) 4.5 Neutrophils % 54.3 Lymphocytes % 34.7 D Monocytes % 9.3 Eosinophils % 1.1 D Basophils % 0.6 Nucleated RBC % 0 PT with INR 11.30 INR 0.96 Sodium Potassium Chloride Carbon Dioxide Anion Gap BUN Creatinine Creat Clearance w eGFR Random Glucose Hemoglobin A1c % Calcium Phosphorus Magnesium Total Bilirubin AST ALT Alkaline Phosphatase Troponin I < 0.02 Total Protein Albumin TSH 07/24/18 07/24/18 07:00 07:00 WBC RBC Hgb Hct MCV MCH MCHC RDW Plt Count MPV Absolute Neuts (auto) Neutrophils % Lymphocytes % Monocytes % Eosinophils % Basophils % Nucleated RBC % PT with INR INR Sodium 137 Potassium 4.0 Chloride 104 Carbon Dioxide 26 Anion Gap 8 BUN 27 H Creatinine 1.6 H Creat Clearance w eGFR 34.40 Random Glucose 78 Hemoglobin A1c % 5.9 Calcium 8.8 Phosphorus 4.0 Magnesium 2.1 Total Bilirubin 0.4 AST 21 ALT 26 Alkaline Phosphatase 73 Troponin I Total Protein 7.6 Albumin 3.6 TSH 1.18 HOSPITAL COURSE: Date of Admission:07/23/18 47 yo F with a history of polysubstance abuse (heroine, alcohol), asthma was sent to the ED from [facility] because of BP of 189/143 admitted for hypertensive urgency. Upon initial exam, pt was asymptomatic. EKG was done that showed NSR. Trops were neg x2. She was given Amlodipine, Lisinopril, Clonidine and admitted overnight for observation. Upon exam, pt had no signs of withdrawal. During her hospital stay, pt's BP became well-controlled. She was discharged back to [facility] with recommendation to cont with her home meds and to proceed with drug rehab. Pt also advised to followup with PCP within 1 week. Date of Discharge: 07/24/18 Minutes to complete discharge: 40 Discharge Summary Reason For Visit: HYPERTENSION URGENCY/ELEVATED BLOOD PRESSURE READI Current Active Problems Opioid use disorder, moderate, in early remission (Acute) Asthma (Chronic) HTN (hypertension) (Chronic) Condition: Improved - Instructions Diet, Activity, Other Instructions: You were sent from [facility] to the hospital for elevated blood pressure. In the hospital, you were given blood pressure medication to control you hypertension. Your blood pressure improved during your stay. You are being discharged back to [facility] to continue your drug rehab. MEDICAL RECOMMENDATIONS Please make the following changes to your medication regimen: Please stop taking Amlodipine 5 mg. You may start taking Amlodipine 10 mg once a day. Please stop taking Hydrochlorothiazide 50 mg. You may start taking Hydrochlorothiazide 25 mg once a day. Please continue taking the rest of your medications as directed. Please take Tylenol 650 mg once every 6 hours for your back pain. CONSULT RECOMMENDATIONS Please follow up with your primary care physician, Dr. Billingsley, at [facility], within 1 week. If you experience persistent headaches, dizziness, chest pain, shortness of breath, difficulty walking, or other associated symptoms, please proceed to your nearest emergency room immediately. Referrals: [facility] Internal Med at [place] [Provider Group] - 1 Week Disposition: TRANSFER ACUTE CARE/OTHER HOSP - Home Medications Comprehensive Discharge Medication List: Ambulatory Orders Albuterol Sulfate Inhaler - [Ventolin HFA Inhaler -] 2 puff IH Q4H PRN #1 inhaler 04/17/18 Buprenorphine HCl/Naloxone HCl [Suboxone 4 mg-1 mg Sl Film] 1 each SL BID 7 Days #14 film MDD 8mg 04/18/18 Amlodipine Besylate [Norvasc -] 10 mg PO DAILY tablet 07/24/18 Hydrochlorothiazide [Hctz -] 50 mg PO DAILY tablet 07/24/18 Lisinopril [Prinivil] 20 mg PO BID tablet 07/24/18 Melatonin 5 mg PO HS PRN tab 07/24/18 cloNIDine HCL [Catapres -] 0.2 mg PO BID@0600,1800 tablet 07/24/18 traZODone HCL [Desyrel -] 50 mg PO HS tablet 07/24/18 This patient is new to me today: Yes Date on this admission: 07/24/18 Emergency Visit: Yes ED Registration Date: 07/23/18 Care time: The patient presented to the Emergency Department on the above date and was hospitalized for further evaluation of their emergent condition. Critical Care patient: No - Discharge Referral Referred to [facility] Med P.C.: No
== END 2018-07-24 15:28 | disposition other institution (70) ==
LOC: JER 08:38 → JERBED 16:10 → UNDOADMOB 16:17 → J8W 19:53
PROVIDERS: ADMIT Internal Medicine; ATTEND Internal Medicine
PROC: 3E0337Z Introduction of Electrolytic and Water Balance Substance into Peripheral Vein, Percutaneous Approach (ICD-10-PCS; principal; 2018-07-23)
DX: I16.0 Hypertensive urgency (principal); I12.9 Hypertensive chronic kidney disease with stage 1 through stage 4 chronic kidney disease, or unspecified chronic kidney disease; N18.3 Chronic kidney disease, stage 3 (moderate); F11.20 Opioid dependence, uncomplicated; F10.10 Alcohol abuse, uncomplicated; F14.10 Cocaine abuse, uncomplicated; J45.909 Unspecified asthma, uncomplicated; N17.9 Acute kidney failure, unspecified; M54.5 Low back pain; G89.29 Other chronic pain; Z59.0 Homelessness
CPT/HCPCS: 36415; 71046-TC-FY; 80053; 82550; 83036; 83735; 84100; 84443; 84484; 84703; 85025; 85610; 93005; 93010; 99285-25; G0378; J0735; J7030

== ENCOUNTER 2018-07-24 16:26 | Inpatient (IN) | payer OTHER ==
[2018-07-24 16:57] VITALS: BMI 24.5
--- NOTE | 2018-07-24 17:06 | HP ---
[facility] Rehab Assess/Revision - Admission History Admitted to Rehab from: Emergency Department Date of Admission to Rehab: 07/24/2018 - Vital signs Vital Signs: Vital Signs Period Temp Pulse Resp BP Sys/Cruz Pulse Ox Last 24 Hr 97.9 F 85 18 140/93 - Findings Detox History & Physical reviewed: Yes Concur with findings: Yes Comments/Additional Findings: Patient was admitted to rehab on 07/18/18 and sent to [facility] ED for evaluation of elevated blood pressure. ED history and patient discharge papers reviewed. Physical assessment completed. Patient re- assessed and is stable for return to rehab. Medication adjustments as per [facility] ED reccommendations. Inpatient Rehab Admission - Initial Determination Are CD services needed?: Yes Free of communicable disease: Yes Not in need of hospitalization: Yes - Rehab Admission Criteria Previous failed treatment: Yes Poor recovery environment: Yes Comorbidities: No Lacks judgement: No Patient is meeting Inpatient Rehab admission criteria:: Yes
[2018-07-24] MEDS ORDERED: MENTHOL/PHENOL 1 EACH UD MM PRN (17:09)
[2018-07-24] MEDS ORDERED: MAGNESIUM CITRATE 300 ML BOTTLE PO PRN (17:09)
[2018-07-24] MEDS ORDERED: IBUPROFEN 400 MG TABLET (FP) PO PRN (17:09)
[2018-07-24] MEDS ORDERED: MAGNESIUM HYDROX 2400MG/30ML ORAL SUSPENSION 30 ML CUP PO PRN (17:09)
[2018-07-24] MEDS ORDERED: LOPERAMIDE HCL 2 MG CAPSULE PO PRN (17:09)
[2018-07-24] MEDS ORDERED: ALBUTEROL SO4 8 GM HFA INHALER IH PRN (17:16)
[2018-07-24] MEDS: cloNIDine HCL 0.1 MG TABLET PO SCH (18:18)
[2018-07-24] MEDS: THIAMINE HCL 100 MG TABLET (FP) PO SCH (21:01)
[2018-07-24] MEDS: LISINOPRIL 20 MG TABLET (FP) PO SCH (21:01)
[2018-07-24] MEDS: hydrOXYzine PAMOATE 50 MG CAPSULE (FP) PO PRN (21:02)
[2018-07-24] MEDS ORDERED: MELATONIN 5 MG TABLETS PO PRN (22:00)
[2018-07-25] MEDS: cloNIDine HCL 0.1 MG TABLET PO SCH ×2 (06:54→18:13)
[2018-07-25] MEDS: amLODIPine BESYLATE 10 MG TABLET (FP) PO SCH (09:20)
[2018-07-25] MEDS: PRENATAL VITAMINS W/ FOLIC ACID TABLET (FP) PO SCH (09:20)
[2018-07-25] MEDS: LISINOPRIL 20 MG TABLET (FP) PO SCH ×2 (09:20→21:33)
[2018-07-25] MEDS: HYDROCHLOROTHIAZIDE 25 MG TABLET (FP) PO SCH (09:20)
--- NOTE | 2018-07-25 09:25 | PN ---
Psychiatric Progress Note Vital Signs: Vital Signs Period Temp Pulse Resp BP Sys/Cruz Pulse Ox Last 24 Hr 97.9 F-98.5 F 66-92 16-18 118-148/82-103 Date of Session: 07/25/18 Chief Complaint:: Readmission Note HPI: Patient addressing Alcohol and Cocaine Dependence comorbid with Opioid Dependence on Agonist Therapy and Substance-Induced Sleep Disorder ROS: Asthma, HTN, Low back pain Current Medications: Active Medications Generic Name Dose Route Start Last Admin Trade Name Freq PRN Reason Stop Dose Admin Acetaminophen 650 mg 07/24/18 17:09 Tylenol - PO Q4H PRN FEVER Al Hydroxide/Mg Hydroxide 30 ml 07/24/18 17:09 Mylanta Oral Suspension - PO Q6H PRN DYSPEPSIA Albuterol Sulfate 2 puff 07/24/18 17:16 Ventolin Hfa Inhaler - IH Q4H PRN SHORT OF BREATH/WHEEZING Amlodipine Besylate 10 mg 07/25/18 10:00 07/25/18 09:20 Norvasc - PO 10 mg DAILY EDNA Administration Clonidine 0.2 mg 07/24/18 18:00 07/25/18 06:54 Catapres - PO 0.2 mg BID@0600,1800 EDNA Administration Eucalyptus/Menthol/Phenol/Sorbitol 1 each 07/24/18 17:09 Cepastat Lozenge - MM Q4H PRN SORE THROAT Hydrochlorothiazide 25 mg 07/25/18 10:00 07/25/18 09:20 Hctz - PO 25 mg DAILY EDNA Administration Hydroxyzine Pamoate 50 mg 07/24/18 17:09 07/24/18 21:02 Vistaril - PO 50 mg Q4H PRN Administration AGITATION Ibuprofen 400 mg 07/24/18 17:09 Motrin - PO Q6H PRN Pain level 4-6 Lisinopril 20 mg 07/24/18 22:00 07/25/18 09:20 Prinivil PO 20 mg BID EDNA Administration Loperamide HCl 4 mg 07/24/18 17:09 Imodium - PO Q6H PRN DIARRHEA Magnesium Citrate 300 ml 07/24/18 17:09 Citroma - PO Q48H PRN CONSTIPATION Magnesium Hydroxide 30 ml 07/24/18 17:09 Milk Of Magnesia - PO DAILY PRN CONSTIPATION Melatonin 5 mg 07/24/18 22:00 07/24/18 21:02 Melatonin PO 5 mg HS PRN Administration INSOMNIA Multivit/Folic Acid/Iron 1 tab 07/25/18 10:00 07/25/18 09:20 Vitamins (Sjr) - PO 1 tab DAILY EDNA Administration Thiamine HCl 100 mg 07/24/18 22:00 07/24/18 21:01 Vitamin B1 - PO 100 mg HS EDNA Administration Current Side Effect: No Lab tests ordered: Yes Lab tests reviewed: Yes Provider note:: Patient was transferred back from [facility] where she was seen for elevated blood pressure. her medications were adjusted and she was sent back to complete inpatient rehab. She was originally admitted to [facility] re[facility] at [facility] on 07/[facility]/18 and on 07/23/18 was referred to [facility] for elevated blood pressure. Prior to her transfer to [facility], she was on Trazadone 50 mg po HS. Reports sleeping poorly on that dose and requests that medication dosage be increased to 100 mg. Total face to face time:: 25 Mental Status Exam - Mental Status Exam Alert and Oriented to: Time, Place, Person Cognitive Function: Fair Patient Appearance: Well Groomed Mood: Anxious Affect: Appropriate Patient Behavior: Cooperative Speech Pattern: Clear Voice Loudness: Normal Thought Process: Intact Thought Disorder: Not Present Hallucinations: Denies Suicidal Ideation: Denies Homicidal Ideation: Denies Insight/Judgement: Fair Sleep: Poorly Appetite: Fair Muscle strength/Tone: Normal Gait/Station: Normal Psychiatric Treatment Plan - Problem List (1) Alcohol dependence Current Visit: No (2) Cocaine dependence Current Visit: No (3) Opioid dependence on agonist therapy Current Visit: Yes (4) Substance-induced sleep disorder Current Visit: No (5) HTN (hypertension) Current Visit: Yes Qualifiers: Hypertension type: unspecified (6) Bronchial asthma Current Visit: No (7) Low back pain Current Visit: No Qualifiers: Chronicity: chronic Back pain laterality: midline Sciatica presence: unspecified whether sciatica present Qualified Code(s): M54.5 - Low back pain ; G89.29 - Other chronic pain Initial treatment plan: 1) Start Trazadone 100 mg po HS. 2) Monitor progress
[2018-07-25] MEDS ORDERED: HYDROCHLOROTHIAZIDE 25 MG TABLET (FP) PO SCH (10:00)
--- NOTE | 2018-07-25 11:05 | PN ---
[facility] Progress Note Note: Addiction Medicine Consult 07/24/18 Patient was seen at [facility] for very elevated BP. She is not using her BP meds and she was sent from [facility] to [facility] to help with better contol of her HTN. I was asked to see her by the request of the inpatient team as she had told them she didn't want to return to rehab at [facility]. Ms. Rogers states that there was a miscommunication and that she does want to go back to rehab. She has just completed 28 days there and was started on Suboxone , which she found helpful. She was given a weeks supply to get her to her outpatient appointment (she doesn't recall where that was) but never made it and relapsed. She endorses wanting to go back on Suboxone as she found it "very helpful and stopped my cravings." The patient recounts a history of heroin use that started two years prior when she moved from [place] back to [place], where she was as a child. She moved back to help her sister care for her foster children. The patient herself has 3 grown children in different parts of the country who are all employed and seem to be without CAROLYNE. Substance Use History Heroin: first use at 45 yo, [place], up to 10-15 bags a day, last use was before her most recent detox at [place]. 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, living in a retirement but she' s not sure which part of COUNT INCLUDES THE [facility] (her living situation is vague and ill defined), as above Psych Hx Denies any history of formal psychiatric diagnosis, does not report any feelings of depression or anxiety Vital Signs - 24 hr 07/24/18 07/24/18 07/24/18 16:55 18:04 21:02 Temperature 97.9 F Pulse Rate 85 92 H 83 Respiratory 18 Rate Blood Pressure 140/93 135/94 118/82 07/25/18 07/25/18 07/25/18 00:30 00:41 03:30 Temperature 98.1 F Pulse Rate 66 Respiratory 16 18 16 Rate Blood Pressure 130/86 07/25/18 07/25/18 07/25/18 07:03 07:04 09:30 Temperature 98.5 F 98.5 F Pulse Rate 71 67 78 Respiratory 18 18 18 Rate Blood Pressure 138/90 148/103 H 125/85 OBJ: she appears very comfortable and does not seem to be in any withdrawal. On clonidine standing and vistaril PRN. Home Medication List Medication Instructions Recorded Confirmed Type Hydrochlorothiazide 25 mg PO DAILY 07/24/18 07/24/18 History Active Medications Generic Name Dose Route Start Last Admin Trade Name Freq PRN Reason Stop Dose Admin Acetaminophen 650 mg 07/24/18 17:09 Tylenol - PO Q4H PRN FEVER Al Hydroxide/Mg Hydroxide 30 ml 07/24/18 17:09 Mylanta Oral Suspension - PO Q6H PRN DYSPEPSIA Albuterol Sulfate 2 puff 07/24/18 17:16 Ventolin Hfa Inhaler - IH Q4H PRN SHORT OF BREATH/WHEEZING Amlodipine Besylate 10 mg 07/25/18 10:00 07/25/18 09:20 Norvasc - PO 10 mg DAILY EDNA Administration Clonidine 0.2 mg 07/24/18 18:00 07/25/18 06:54 Catapres - PO 0.2 mg BID@0600,1800 EDNA Administration Eucalyptus/Menthol/Phenol/Sorbitol 1 each 07/24/18 17:09 Cepastat Lozenge - MM Q4H PRN SORE THROAT Hydrochlorothiazide 25 mg 07/25/18 10:00 07/25/18 09:20 Hctz - PO 25 mg DAILY EDNA Administration Hydroxyzine Pamoate 50 mg 07/24/18 17:09 07/24/18 21:02 Vistaril - PO 50 mg Q4H PRN Administration AGITATION Ibuprofen 400 mg 07/24/18 17:09 Motrin - PO Q6H PRN Pain level 4-6 Lisinopril 20 mg 07/24/18 22:00 07/25/18 09:20 Prinivil PO 20 mg BID EDNA Administration Loperamide HCl 4 mg 07/24/18 17:09 Imodium - PO Q6H PRN DIARRHEA Magnesium Citrate 300 ml 07/24/18 17:09 Citroma - PO Q48H PRN CONSTIPATION Magnesium Hydroxide 30 ml 07/24/18 17:09 Milk Of Magnesia - PO DAILY PRN CONSTIPATION Melatonin 5 mg 07/24/18 22:00 07/24/18 21:02 Melatonin PO 5 mg HS PRN Administration INSOMNIA Multivit/Folic Acid/Iron 1 tab 07/25/18 10:00 07/25/18 09:20 Vitamins (Sjr) - PO 1 tab DAILY EDNA Administration Thiamine HCl 100 mg 07/24/18 22:00 07/24/18 21:01 Vitamin B1 - PO 100 mg HS EDNA Administration Trazodone HCl 100 mg 07/25/18 22:00 Desyrel - PO HS EDNA A/P: OUD: Given her report of help from Suboxone, I would re-start at 4mg and titrate up from there. If she is having withdrawal symptoms we can use clonidine, flexeril etc until we can re-start Suboxone. Before we can re-start her, we need to have a tight discharge plan that offers both CAROLYNE treatment with Suboxone and primary care. The team on rehab will work with her counselor to identify discharge options. CUD: There are no evidence based medications for cocaine use disorders. Group, CBT, coping skills HTN: follow medications as indicated by the [facility] team
--- NOTE | 2018-07-25 16:08 | PN ---
[facility] Progress Note Note: Met w/ patient and counselor to discuss post-discharge Suboxone treatment. Patient states she's leaving rehab early. States she plans to go on 07/29. Informed that early discharge make its difficulty to ensure a provider. Discussed this situation w/ patient in presence of counselor.
[2018-07-25] MEDS: THIAMINE HCL 100 MG TABLET (FP) PO SCH (21:33)
[2018-07-25] MEDS: traZODone HCL 100 MG TABLET (FP) PO SCH (21:33)
[2018-07-25] MEDS: MAG HYDROX/AL HYDROX/SIMETH 30 ML UNIT-DOSE CUP PO PRN (23:38)
[2018-07-26] MEDS: cloNIDine HCL 0.1 MG TABLET PO SCH ×2 (06:42→18:00)
[2018-07-26] MEDS: PRENATAL VITAMINS W/ FOLIC ACID TABLET (FP) PO SCH (10:08)
[2018-07-26] MEDS: amLODIPine BESYLATE 10 MG TABLET (FP) PO SCH (10:08)
[2018-07-26] MEDS: HYDROCHLOROTHIAZIDE 25 MG TABLET (FP) PO SCH (10:08)
[2018-07-26] MEDS: LISINOPRIL 20 MG TABLET (FP) PO SCH ×2 (10:08→21:33)
[2018-07-26] MEDS: hydrOXYzine PAMOATE 50 MG CAPSULE (FP) PO PRN ×2 (10:10→18:01)
[2018-07-26] MEDS: ACETAMINOPHEN 325 MG TABLET (FP) PO PRN (10:10)
[2018-07-26] MEDS ORDERED: FLU VACCINE QUAD 60 MCG/0.5 ML (MDV 18-19) IM ONE (12:00)
[2018-07-26] MEDS: THIAMINE HCL 100 MG TABLET (FP) PO SCH (21:33)
[2018-07-26] MEDS: traZODone HCL 100 MG TABLET (FP) PO SCH (21:33)
[2018-07-26] MEDS: MAG HYDROX/AL HYDROX/SIMETH 30 ML UNIT-DOSE CUP PO PRN (22:58)
[2018-07-27] MEDS: cloNIDine HCL 0.1 MG TABLET PO SCH ×2 (06:54→17:53)
[2018-07-27] MEDS: ACETAMINOPHEN 325 MG TABLET (FP) PO PRN ×2 (06:55→21:12)
[2018-07-27] MEDS: LISINOPRIL 20 MG TABLET (FP) PO SCH ×2 (09:56→21:11)
[2018-07-27] MEDS: HYDROCHLOROTHIAZIDE 25 MG TABLET (FP) PO SCH (09:56)
[2018-07-27] MEDS: amLODIPine BESYLATE 10 MG TABLET (FP) PO SCH (09:56)
[2018-07-27] MEDS: PRENATAL VITAMINS W/ FOLIC ACID TABLET (FP) PO SCH (09:56)
[2018-07-27] MEDS: THIAMINE HCL 100 MG TABLET (FP) PO SCH (21:11)
[2018-07-27] MEDS: traZODone HCL 100 MG TABLET (FP) PO SCH (21:11)
[2018-07-27] MEDS: hydrOXYzine PAMOATE 50 MG CAPSULE (FP) PO PRN (21:12)
[2018-07-28] MEDS: cloNIDine HCL 0.1 MG TABLET PO SCH ×2 (06:53→17:26)
[2018-07-28] MEDS: LISINOPRIL 20 MG TABLET (FP) PO SCH ×2 (10:22→21:20)
[2018-07-28] MEDS: amLODIPine BESYLATE 10 MG TABLET (FP) PO SCH (10:22)
[2018-07-28] MEDS: HYDROCHLOROTHIAZIDE 25 MG TABLET (FP) PO SCH (10:22)
[2018-07-28] MEDS: PRENATAL VITAMINS W/ FOLIC ACID TABLET (FP) PO SCH (10:22)
[2018-07-28] MEDS: ACETAMINOPHEN 325 MG TABLET (FP) PO PRN (10:23)
[2018-07-28] MEDS: hydrOXYzine PAMOATE 50 MG CAPSULE (FP) PO PRN ×2 (10:23→17:27)
[2018-07-28] MEDS: THIAMINE HCL 100 MG TABLET (FP) PO SCH (21:20)
[2018-07-28] MEDS: traZODone HCL 100 MG TABLET (FP) PO SCH (21:20)
[2018-07-29] MEDS: cloNIDine HCL 0.1 MG TABLET PO SCH ×2 (06:47→18:55)
[2018-07-29] MEDS: HYDROCHLOROTHIAZIDE 25 MG TABLET (FP) PO SCH (10:12)
[2018-07-29] MEDS: PRENATAL VITAMINS W/ FOLIC ACID TABLET (FP) PO SCH (10:12)
[2018-07-29] MEDS: amLODIPine BESYLATE 10 MG TABLET (FP) PO SCH (10:13)
[2018-07-29] MEDS: LISINOPRIL 20 MG TABLET (FP) PO SCH ×2 (10:13→21:08)
--- NOTE | 2018-07-29 11:23 | PN ---
[facility] Progress Note Note: PATIENT CONNECTED TO [facility] FOR TREATMENT, CONTACT DR. QUEZADA AT [phone]. PATIENT HAS APPOINTMENT ON 08/01/17. PLAN PER DR. GALVIN IS TO START SUBOXONE 4MG AND TITRATE ONCE OUT PATIENT TREATMENT ARRANGED. WILL START SUBOXONE RECOMMENDED AND TITRATE NEEDED. Vital Signs Temperature 97.9 F 07/29/18 07:00 Pulse Rate 82 07/29/18 09:32 Respiratory Rate 18 07/29/18 07:00 Blood Pressure 150/103 H 07/29/18 09:32 O2 Sat by Pulse Oximetry (%)
[2018-07-29] MEDS ORDERED: BUPRENORPHINE/NALOXONE 2 MG/0.5 MG FILM PACKET SL ONE (11:45)
[2018-07-29] MEDS: THIAMINE HCL 100 MG TABLET (FP) PO SCH (21:08)
[2018-07-29] MEDS: traZODone HCL 100 MG TABLET (FP) PO SCH (21:08)
[2018-07-29] MEDS: ACETAMINOPHEN 325 MG TABLET (FP) PO PRN (21:09)
[2018-07-29] MEDS: hydrOXYzine PAMOATE 50 MG CAPSULE (FP) PO PRN (21:09)
[2018-07-30] MEDS: cloNIDine HCL 0.1 MG TABLET PO SCH ×2 (06:46→17:39)
[2018-07-30] MEDS: ACETAMINOPHEN 325 MG TABLET (FP) PO PRN ×2 (06:47→20:57)
[2018-07-30] MEDS: hydrOXYzine PAMOATE 50 MG CAPSULE (FP) PO PRN ×2 (06:47→17:39)
[2018-07-30] MEDS: LISINOPRIL 20 MG TABLET (FP) PO SCH ×2 (09:52→21:00)
[2018-07-30] MEDS: PRENATAL VITAMINS W/ FOLIC ACID TABLET (FP) PO SCH (09:52)
[2018-07-30] MEDS: amLODIPine BESYLATE 10 MG TABLET (FP) PO SCH (09:52)
[2018-07-30] MEDS: HYDROCHLOROTHIAZIDE 25 MG TABLET (FP) PO SCH (09:52)
[2018-07-30] MEDS: BUPRENORPHINE/NALOXONE 2 MG/0.5 MG FILM PACKET SL SCH (09:54)
--- NOTE | 2018-07-30 15:13 | PN ---
Psychiatric Progress Note Vital Signs: Vital Signs Period Temp Pulse Resp BP Sys/Cruz Pulse Ox Last 24 Hr 97.6 F 75-99 18-18 126-145/82-98 Date of Session: 07/30/18 Chief Complaint:: "Discharge" HPI: Patient admitted to for alcohol, cocaine and opiate dependence. ROS: Significant for HTN,LOw back pain Current Medications: Active Medications Generic Name Dose Route Start Last Admin Trade Name Freq PRN Reason Stop Dose Admin Acetaminophen 650 mg 07/24/18 17:09 07/30/18 06:47 Tylenol - PO 650 mg Q4H PRN Administration FEVER Al Hydroxide/Mg Hydroxide 30 ml 07/24/18 17:09 07/26/18 22:58 Mylanta Oral Suspension - PO 30 ml Q6H PRN Administration DYSPEPSIA Albuterol Sulfate 2 puff 07/24/18 17:16 Ventolin Hfa Inhaler - IH Q4H PRN SHORT OF BREATH/WHEEZING Amlodipine Besylate 10 mg 07/25/18 10:00 07/30/18 09:52 Norvasc - PO 10 mg DAILY EDNA Administration Buprenorphine/Naloxone 2 each 07/30/18 10:00 07/30/18 09:54 Suboxone 2mg/0.5mg Sl Film - SL 08/05/18 09:59 2 each DAILY EDNA Administration Clonidine 0.2 mg 07/24/18 18:00 07/30/18 06:46 Catapres - PO 0.2 mg BID@0600,1800 EDNA Administration Eucalyptus/Menthol/Phenol/Sorbitol 1 each 07/24/18 17:09 Cepastat Lozenge - MM Q4H PRN SORE THROAT Hydrochlorothiazide 25 mg 07/25/18 10:00 07/30/18 09:52 Hctz - PO 25 mg DAILY EDNA Administration Hydroxyzine Pamoate 50 mg 07/24/18 17:09 07/30/18 06:47 Vistaril - PO 50 mg Q4H PRN Administration AGITATION Ibuprofen 400 mg 07/24/18 17:09 Motrin - PO Q6H PRN Pain level 4-6 Lisinopril 20 mg 07/24/18 22:00 07/30/18 09:52 Prinivil PO 20 mg BID EDNA Administration Loperamide HCl 4 mg 07/24/18 17:09 Imodium - PO Q6H PRN DIARRHEA Magnesium Citrate 300 ml 07/24/18 17:09 Citroma - PO Q48H PRN CONSTIPATION Magnesium Hydroxide 30 ml 07/24/18 17:09 Milk Of Magnesia - PO DAILY PRN CONSTIPATION Melatonin 5 mg 07/24/18 22:00 07/24/18 21:02 Melatonin PO 5 mg HS PRN Administration INSOMNIA Multivit/Folic Acid/Iron 1 tab 07/25/18 10:00 07/30/18 09:52 Vitamins (Sjr) - PO 1 tab DAILY EDNA Administration Thiamine HCl 100 mg 07/24/18 22:00 07/29/18 21:08 Vitamin B1 - PO 100 mg HS EDNA Administration Trazodone HCl 100 mg 07/25/18 22:00 07/29/18 21:08 Desyrel - PO 100 mg HS EDNA Administration Medication(s) Change(s): No. Current Side Effect: No Lab tests ordered: No Lab tests reviewed: Yes Provider note:: Patient will complete the inpatient rehabilitation program on 07/31/17. She has met her treatment goals and is now being referred to the [facility]. Her appointment is on , 08/01/18 at 11: 30 AM. Through participation of this program at [facility] patient has learned the importance of changing her behavior and the need for more structure in her life. She reports feeling well and is optimistic about her discharge. A 30 day prescription of trazodone 100mg will be electronically sent to [facility] at [address] [place] [address], [facility]. Patient is stable for discharge on 07/31/17. Total face to face time:: 35 Mental Status Exam - Mental Status Exam Alert and Oriented to: Time, Place, Person Cognitive Function: Good Patient Appearance: Well Groomed Mood: Euthymic Affect: Appropriate, Mood Congruent Patient Behavior: Appropriate, Cooperative Speech Pattern: Clear, Appropriate Voice Loudness: Normal Thought Process: Intact, Goal Oriented Thought Disorder: Not Present Hallucinations: Denies Suicidal Ideation: Denies Homicidal Ideation: Denies Sleep: Fair Appetite: Good Muscle strength/Tone: Normal Gait/Station: Normal Psychiatric Treatment Plan - Problem List (1) Opioid dependence on agonist therapy Current Visit: Yes (2) Alcohol dependence Current Visit: No (3) Cocaine dependence Current Visit: No (4) Substance-induced sleep disorder Current Visit: Yes
[2018-07-30] MEDS: traZODone HCL 100 MG TABLET (FP) PO SCH (21:00)
[2018-07-30] MEDS: THIAMINE HCL 100 MG TABLET (FP) PO SCH (21:00)
[2018-07-31 06:42] VITALS: TEMP 97.8
[2018-07-31] MEDS: cloNIDine HCL 0.1 MG TABLET PO SCH (06:52)
[2018-07-31] MEDS: ACETAMINOPHEN 325 MG TABLET (FP) PO PRN (06:53)
[2018-07-31] MEDS: hydrOXYzine PAMOATE 50 MG CAPSULE (FP) PO PRN (06:53)
[2018-07-31] MEDS: BUPRENORPHINE/NALOXONE 2 MG/0.5 MG FILM PACKET SL SCH (09:02)
[2018-07-31] MEDS: PRENATAL VITAMINS W/ FOLIC ACID TABLET (FP) PO SCH (09:02)
[2018-07-31] MEDS: amLODIPine BESYLATE 10 MG TABLET (FP) PO SCH (09:02)
[2018-07-31] MEDS: LISINOPRIL 20 MG TABLET (FP) PO SCH (09:02)
[2018-07-31] MEDS: HYDROCHLOROTHIAZIDE 25 MG TABLET (FP) PO SCH (09:02)
[2018-07-31 09:48] VITALS: BP 130/90; PULSE 77
== END 2018-07-31 09:42 | disposition home or self-care (01) | DRG 772 ==
LOC: YASAS 16:26 → Y3E 16:52
PROVIDERS: ADMIT Psychiatry & Neurology Psychiatry; ATTEND Psychiatry & Neurology Psychiatry
PROC: HZ42ZZZ Group Counseling for Substance Abuse Treatment, Cognitive-Behavioral (ICD-10-PCS; principal; 2018-07-24)
DX: F10.20 Alcohol dependence, uncomplicated (principal); F11.20 Opioid dependence, uncomplicated; F14.20 Cocaine dependence, uncomplicated; F19.282 Other psychoactive substance dependence with psychoactive substance-induced sleep disorder; I10 Essential (primary) hypertension; J45.909 Unspecified asthma, uncomplicated; M54.5 Low back pain; G89.29 Other chronic pain; Z59.0 Homelessness
CPT/HCPCS: 90688; G0008; J0735